=== PATIENT | female | born 1945 | race Caucasian/White ===

== ENCOUNTER 2019-05-06 15:47 | Outpatient (CLI) | payer MEDICARE, OTHER | END 2019-05-06 15:48 | disposition critical access hospital (66) | LOC: EMS 15:47 | PROVIDERS: ATTEND Surgery | DX: R42 Dizziness and giddiness (principal); R19.7 Diarrhea, unspecified | CPT/HCPCS: A0425; A0429 ==

== ENCOUNTER 2019-05-06 16:09 | Emergency (ER) | payer MEDICARE, OTHER ==
[2019-05-06] MEDS ORDERED: SODIUM CHLORIDE 0.9% 1,000 ML IV ONE (16:42)
--- NOTE | 2019-05-06 16:44 | ED Physician Documentation ---
History of Present Illness - Stated complaint Stated Complaint: DIZZY - Chief complaint Chief Complaint: Abd Pain - History obtained from History obtained from: Patient, Family, EMS - History of Present Illness Timing: Today Pain level max: 0 Pain level now: 0 - Additonal information Additional information: 73-year-old female presents to the emergency department after having diarrhea x2 this morning. After these episodes, she was up and walking when she felt lightheaded and dizzy. This resolved with sitting down. Worse with movement and better with rest. She states she currently feels better after receiving IV fluids with EMS. No fevers. No recent travel. No recent antibiotics. No recent surgery. Review of Systems Ten Systems: 10 systems reviewed and negative Constitutional: denies: Fever, Chills Ears: denies: Ear pain Nose: denies: Rhinorrhea / runny nose, Congestion Cardiac: denies: Chest pain / pressure Respiratory: denies: Dyspnea, Cough GI: reports: Diarrhea. denies: Abdominal Pain, Hematemesis, Bloody / black stool : denies: Dysuria Skin: denies: Rash Musculoskeletal: denies: Neck pain, Back pain Neurologic: denies: Headache PD PAST MEDICAL HISTORY - Past Medical History Cardiovascular: Hypertension Musculoskeletal: Other - Past Surgical History Past Surgical History: Yes - Present Medications Home Medications: Ambulatory Orders Medication Instructions Recorded Confirmed Gabapentin 300 mg PO TID #30 capsule 06/05/16 Indomethacin [Indocin] 25 mg PO BIDWM #10 capsule 06/05/16 amLODIPine [Norvasc] 5 mg PO DAILY 06/05/16 06/05/16 Cephalexin [Keflex] 500 mg PO Q6H #20 capsule 05/06/19 - Allergies Allergies/Adverse Reactions: Allergies Allergy/AdvReac Type Severity Reaction Status Date / Time cyclobenzaprine HCl * Allergy Intermediate Unknown Verified 05/06/19 16:21 [From Flexeril] - Social History Does the pt smoke?: No Smoking Status: Never smoker Does the pt drink ETOH?: No Does the pt have substance abuse?: No - Immunizations Immunizations are current?: Yes PD ED PE NORMAL - Vitals Vital signs reviewed: Yes - General General: Alert and oriented X 3, No acute distress, Well developed/nourished - HEENT HEENT: PERRL, Moist mucous membranes - Neck Neck: Supple, no meningeal sign - Cardiac Cardiac: RRR, Strong equal pulses - Respiratory Respiratory: No respiratory distress, Clear bilaterally - Abdomen Abdomen: Soft, Non tender, Non distended - Derm Derm: Warm and dry - Extremities Extremities: No edema, No calf tenderness / cord - Neuro Neuro: Alert and oriented X 3 - Psych Psych: Normal mood, Normal affect Results - Vitals Vitals: Vital Signs - 24 hr 05/06/19 05/06/19 05/06/19 16:16 18:10 18:58 Temperature 98.4 C H 36.6 C Heart Rate 88 67 84 Respiratory 14 16 18 Rate Blood Pressure 125/69 128/71 129/66 O2 Saturation 95 97 98 Oxygen O2 Source Room air - Labs Labs: Laboratory Tests 05/06/19 05/06/19 05/06/19 16:48 16:48 17:00 WBC 11.5 H RBC 4.06 L Hgb 12.5 Hct 37.7 MCV 92.9 MCH 30.8 MCHC 33.2 RDW 12.7 Plt Count 217 MPV 9.6 Neut # (Auto) 9.4 H Lymph # (Auto) 1.0 L [place] # (Auto) 0.9 Eos # (Auto) 0.0 Baso # (Auto) 0.0 Absolute Nucleated RBC 0.00 Nucleated RBC % 0.0 Sodium 137 Potassium 3.8 Chloride 101 Carbon Dioxide 24 Anion Gap 12.0 BUN 22 H Creatinine 0.8 Estimated GFR (MDRD) 70 L Glucose 148 H Calcium 8.5 Total Bilirubin 0.6 AST 17 ALT 16 Alkaline Phosphatase 40 L Total Protein 6.7 Albumin 3.9 Globulin 2.8 Albumin/Globulin Ratio 1.4 Lipase 26 Urine Color YELLOW Urine Clarity CLOUDY Urine pH 6.0 Ur Specific [place] 1.025 Urine Protein 100 H Urine Glucose (UA) NEGATIVE Urine Ketones NEGATIVE Urine Occult Blood MODERATE H Urine Nitrite NEGATIVE Urine Bilirubin NEGATIVE Urine Urobilinogen 1 (NORMAL) Ur Leukocyte Esterase MODERATE H Urine RBC TNTC H Urine WBC >25 H Ur Squamous Epith Cells RARE Squamous Urine Bacteria Many H Ur Microscopic Review INDICATED Urine Culture Comments INDICATED PD MEDICAL DECISION MAKING - ED course Complexity details: reviewed results, re-evaluated patient, considered differential, d/w patient, d/w family ED course: Patient feels better after IV fluids. Found to have UTI and given Rocephin. Will place on oral antibiotics as well. She is well-appearing, nontoxic. Afebrile. Abdomen is soft, nontender nondistended on serial exam. No evidence of C. difficile colitis or diverticulitis. Patient counseled regarding signs and symptoms for which I believe and urgent re-evaluation would be necessary. Patient with good understanding of and agreement to plan and is comfortable going home at this time This document was made in part using voice recognition software. While efforts are made to proofread this document, sound alike and grammatical errors may occur. Patient is not septic Ambulating with a steady gait and without any dizziness in the emergency department Departure - Departure Disposition: 01 Home, Self Care Clinical Impression: Dehydration Diarrhea Qualifiers: Diarrhea type: unspecified type Qualified Code(s): R19.7 - Diarrhea, unspecified UTI (urinary tract infection) Qualifiers: Urinary tract infection type: acute cystitis Hematuria presence: without hematuria Qualified Code(s): N30.00 - Acute cystitis without hematuria Condition: Good Instructions: ED Diarrhea Viral, ED UTI Cystitis Female Follow-Up: Karma Howe DO [Primary Care Provider] - Within 1 week Prescriptions: Cephalexin [Keflex] 500 mg PO Q6H #20 capsule Comments: Take all antibiotics until gone. Return if you worsen. Follow-up with your doctor for further care. Drink plenty of water. Discharge Date/Time: 05/06/19 19:16
[2019-05-06 17:01] LABS: BASOPHILS % (AUTO) 0.2 %; EOSINOPHILS % (AUTO) 0.3 %; HGB - HEMOGLOBIN 12.5 g/dL (12.0-16.0); LYMPHOCYTES % (AUTO) 8.7 %; MEAN CORPUSCULAR HEMOGLOBIN 30.8 pg (27.0-31.0); MEAN CORPUSCULAR HGB CONC 33.2 g/dL (32.0-36.0); MEAN CORPUSCULAR VOLUME 92.9 fL (81.0-99.0); MEAN PLATELET VOLUME 9.6 fL (7.9-10.8); MONOCYTES # (AUTO) 0.9 10^3/uL (0.0-1.0); NEUTROPHILS # (AUTO) 9.4 10^3/uL (1.5-6.6); NEUTROPHILS % (AUTO) 82.4 %; PLT - PLATELET COUNT 217 10^3/uL (130-450); RED BLOOD COUNT 4.06 10^6/uL (4.20-5.40); RED CELL DISTRIBUTION WIDTH 12.7 % (12.0-15.0); WHITE BLOOD COUNT 11.5 x10^3/uL (4.8-10.8)
[2019-05-06 17:11] LABS: ALBUMIN 3.9 g/dL (3.2-5.5); ALBUMIN/GLOBULIN RATIO 1.4 (1.0-2.2); BILIRUBIN,TOTAL 0.6 mg/dL (0.2-1.0); CALCIUM 8.5 mg/dL (8.5-10.3); CREATININE 0.8 mg/dL (0.4-1.0); TOTAL PROTEIN 6.7 g/dL (6.7-8.2)
[2019-05-06 18:26] LABS: GLUCOSE, URINE (UA) NEGATIVE (NEGATIVE); KETONES,URINE (UA) NEGATIVE (NEGATIVE); LEUKOCYTE ESTERASE, URINE MODERATE (NEGATIVE); NITRITE,URINE NEGATIVE (NEGATIVE); OCCULT BLOOD,URINE MODERATE (NEGATIVE); PROTEIN,URINE 100 mg/dL (NEGATIVE); UROBILINOGEN,URINE 1 (NORMAL) E.U./dL (NORMAL)
[2019-05-06 18:42] LABS: BILIRUBIN,URINE NEGATIVE (NEGATIVE); CLARITY,URINE CLOUDY (CLEAR); ICTOTEST,URINE NEGATIVE
[2019-05-06 18:43] LABS: BACTERIA,URINE Many /HPF (None Seen); RBC,URINE TNTC /HPF (0-5); SQUAMOUS EPITHELIAL CELL,UR RARE Squamous (<= Few)
[2019-05-06] MEDS ORDERED: cefTRIAXone 1 GM VIAL IVP STA (18:44)
[2019-05-06 18:59] VITALS: BP 129/66
== END 2019-05-06 19:16 | disposition home or self-care (01) ==
LOC: EDUNIT# → ED 16:09
DX: E86.0 Dehydration (principal); R19.7 Diarrhea, unspecified; N30.00 Acute cystitis without hematuria; I10 Essential (primary) hypertension
CPT/HCPCS: 36415; 80053; 81001; 81003; 83690; 85025; 87086; 93005; 96361; 96374; 99284

== ENCOUNTER 2020-04-05 08:00 | Outpatient (CLI) | payer MEDICARE, OTHER ==
[2020-04-05 18:00] LABS: BASOPHILS % (AUTO) 0.3 %; EOSINOPHILS # (AUTO) 0.1 10^3/uL (0.0-0.7); EOSINOPHILS % (AUTO) 1.4 %; HGB - HEMOGLOBIN 12.4 g/dL (12.0-16.0); LYMPHOCYTES % (AUTO) 42.5 %; MEAN CORPUSCULAR HEMOGLOBIN 29.5 pg (27.0-31.0); MEAN CORPUSCULAR HGB CONC 32.3 g/dL (32.0-36.0); MEAN CORPUSCULAR VOLUME 91.2 fL (81.0-99.0); MEAN PLATELET VOLUME 10.5 fL (7.9-10.8); MONOCYTES # (AUTO) 0.8 10^3/uL (0.0-1.0); MONOCYTES % (AUTO) 10.7 %; NEUTROPHILS # (AUTO) 3.1 10^3/uL (1.5-6.6); NEUTROPHILS % (AUTO) 44.4 %; PLT - PLATELET COUNT 275 10^3/uL (130-450); RED BLOOD COUNT 4.21 10^6/uL (4.20-5.40); RED CELL DISTRIBUTION WIDTH 12.5 % (12.0-15.0)
[2020-04-05 18:21] LABS: ALBUMIN 4.1 g/dL (3.2-5.5); ALBUMIN/GLOBULIN RATIO 1.4 (1.0-2.2); BILIRUBIN,TOTAL 0.6 mg/dL (0.2-1.0); CALCIUM 9.2 mg/dL (8.5-10.3); CREATININE 0.7 mg/dL (0.4-1.0); TOTAL PROTEIN 7.1 g/dL (6.7-8.2)
== END 2020-04-05 23:59 | disposition home or self-care (01) ==
LOC: LAB.WCP 08:00
PROVIDERS: ATTEND Nurse Practitioner Family
DX: I10 Essential (primary) hypertension (principal)
CPT/HCPCS: 36415; 80053; 85025

== ENCOUNTER 2020-12-21 10:55 | Outpatient (CLI) | payer MEDICARE, OTHER ==
[2020-12-21 11:10] LABS: ALBUMIN 4.6 g/dL (3.2-5.5); ALBUMIN/GLOBULIN RATIO 1.6 (1.0-2.2); BILIRUBIN,TOTAL 0.7 mg/dL (0.2-1.0); CALCIUM 9.1 mg/dL (8.5-10.3); CREATININE 0.6 mg/dL (0.4-1.0); POTASSIUM 3.7 mmol/L (3.5-5.0); TOTAL PROTEIN 7.4 g/dL (6.7-8.2)
[2020-12-21] MEDS ORDERED: IOVERSOL 320 100 ML VIAL IVP ONE ×2 (12:08→14:54)
--- NOTE | 2020-12-21 14:34 | CT Report ---
PROCEDURE: CHEST W INDICATIONS: EPIGASTRIC MASS CONTRAST: IV CONTRAST: Optiray 320 ml: 100 PO CONTRAST: *NO PO CONTRAST TECHNIQUE: After the administration of intravenous contrast, 5 mm thick sections acquired from the pulmonary api mikie to the posterior costophrenic angles. 7 mm thick coronal MIP reformats were acquired. For radia tion dose reduction, the following was used: automated exposure control, adjustment of mA and/or kV according to patient size. COMPARISON: None. FINDINGS: Image quality: Excellent. Lungs and pleura: No acute air space opacities. No pleural effusions or pneumothorax. Central and peripheral airways are patent and normal in caliber. Mediastinum: Heart size is normal. There is moderate atherosclerotic calcification of the coronary v asculature. No pericardial effusion. No mediastinal or hilar adenopathy by size criteria. Thoracic aorta and central pulmonary arteries are normal in size. Esophagus is normal in caliber. No hiatal hernia. Bones and chest wall: No suspicious bony lesions. No vertebral body compression fractures. No axil billy or supraclavicular adenopathy by size criteria. Thyroid gland is within normal limits. A fiduc ial marker overlies the inferior aspect of the xiphoid process, to demarcate the area of clinical int erest. There is no evidence of underlying soft tissue nor osseous mass in this location. Abdomen: Visualized portions of the upper abdomen demonstrate multiple rounded calcifications of the splenic hilum, largest of which measures roughly 10 mm diameter. IMPRESSION: 1. The epigastric mass as denoted by the fiducial marker overlies the inferior tip of the xiphoid pro cess. There is no evidence of underlying ossific nor soft tissue mass. 2. Multiple rounded calcifications within the splenic hilum, suggestive of splenic artery aneurysms. Initial further assessment with CT angiography of the abdomen is recommended. 3. Coronary artery disease. Reviewed by: Khalida Holder MD on 12/21/2020 2:32 PM PST Approved by: Khalida Holder MD on 12/21/2020 2:32 PM PST Station ID: [id number]
== END 2020-12-21 10:56 | disposition home or self-care (01) ==
LOC: LAB 10:55
PROVIDERS: ATTEND Nurse Practitioner Family
DX: D73.89 Other diseases of spleen (principal); I25.10 Atherosclerotic heart disease of native coronary artery without angina pectoris; R19.06 Epigastric swelling, mass or lump
CPT/HCPCS: 36415; 71260; 80053; Q9967

== ENCOUNTER 2021-01-05 09:52 | Outpatient (CLI) | payer MEDICARE, OTHER ==
[2021-01-05] MEDS ORDERED: IOVERSOL 320 100 ML VIAL IVP ONE ×2 (10:54)
--- NOTE | 2021-01-05 11:42 | CT Report ---
PROCEDURE: ANGIO ABDOMEN W/WO INDICATIONS: SPLENIC CALCIFICATION CONTRAST: IV CONTRAST: Optiray 320 ml: 100 PO CONTRAST: *NO PO CONTRAST TECHNIQUE: After the administration of intravenous contrast, 2 and 5 mm sections acquired from the diaphragm to the iliac crests. 3-dimensional maximum intensity projection (MIP) coronal and sagittal reformats, a nd/or 3-dimensional volume rendering reformatting was then performed. For radiation dose reduction, the following was used: automated exposure control, adjustment of mA and/or kV according to patient size. COMPARISON: Chest CT dated 12/21/2020 FINDINGS: Image quality: Excellent. Extravascular tissues: Lung bases are clear. Heart size is normal. Liver and spleen are normal in size and enhancement. Gallbladder is surgically absent Biliary system is non dilated. Pancreas enh ances normally. No adrenal nodules. Kidneys are normal in size and enhancement, without hydronephro sis. Non-opacified bowel loops demonstrate normal wall thickness and caliber. No free fluid or air. No retroperitoneal or mesenteric adenopathy. No ventral hernias. No suspicious bony abnormalities . No vertebral body compression fractures. Abdominal aorta: There is moderate diffuse plaque causing mild diffuse stenosis. No aneurysm nor dis section. Mesenteric arteries: Mild calcific origin stenoses of the celiac and superior mesenteric arteries ar e present. Inferior mesenteric artery is patent. Multiple foci of calcification within the splenic ar olivia are present, as before. There is a peripherally calcified aneurysm at the splenic hilum measurin g roughly 8 mm (series 4 image 28). Renal arteries: Single bilateral renal arteries are present which demonstrate mild calcific origin s tenoses. IMPRESSION: 1. 8mm diameter splenic artery aneurysm. 2. Otherwise negative CT angiography of the abdomen. Reviewed by: Khalida Holder MD on 01/05/2021 11:41 AM PST Approved by: Khalida Holder MD on 01/05/2021 11:41 AM PST Station ID: [id number]
== END 2021-01-05 09:53 | disposition home or self-care (01) ==
LOC: DI 09:52
PROVIDERS: ATTEND Nurse Practitioner Family
DX: D73.89 Other diseases of spleen (principal); I72.8 Aneurysm of other specified arteries
CPT/HCPCS: 74175; Q9967

== ENCOUNTER 2021-04-04 08:45 | Outpatient (CLI) | payer MEDICARE, OTHER ==
[2021-04-04 12:26] LABS: BASOPHILS % (AUTO) 0.1 %; EOSINOPHILS # (AUTO) 0.1 10^3/uL (0.0-0.7); HCT - HEMATOCRIT 39.4 % (37.0-47.0); LYMPHOCYTES # (AUTO) 2.6 10^3/uL (1.5-3.5); LYMPHOCYTES % (AUTO) 38.5 %; MEAN CORPUSCULAR VOLUME 93.8 fL (81.0-99.0); MEAN PLATELET VOLUME 10.2 fL (7.9-10.8); MONOCYTES # (AUTO) 0.9 10^3/uL (0.0-1.0); MONOCYTES % (AUTO) 12.8 %; NEUTROPHILS # (AUTO) 3.2 10^3/uL (1.5-6.6); NEUTROPHILS % (AUTO) 47.3 %; PLT - PLATELET COUNT 262 10^3/uL (130-450); RED CELL DISTRIBUTION WIDTH 12.2 % (12.0-15.0); WHITE BLOOD COUNT 6.8 x10^3/uL (4.8-10.8)
[2021-04-04 13:07] LABS: ALBUMIN 4.4 g/dL (3.2-5.5); ALBUMIN/GLOBULIN RATIO 1.5 (1.0-2.2); ALKALINE PHOSPHATASE 37 IU/L (42-121); ALT ALANINE AMINOTRANSFERASE 14 IU/L (10-60); AST ASPARTATE AMINOTRANSFERASE 15 IU/L (10-42); BILIRUBIN,TOTAL 0.7 mg/dL (0.2-1.0); BUN - BLOOD UREA NITROGEN 18 mg/dL (6-20); CALCIUM 9.2 mg/dL (8.5-10.3); CARBON DIOXIDE - CO2 28 mmol/L (21-32); CHLORIDE 100 mmol/L (101-111); CHOLESTEROL 227 mg/dL; CREATININE 0.6 mg/dL (0.4-1.0); GFR - MDRD 97 (>89); GLUCOSE 112 mg/dL (70-100); HDL CHOLESTEROL 57 mg/dL; LDL CHOLESTEROL,CALCULATED 131 mg/dL; LDL/HDL RATIO 2.3 (<4.4); SODIUM 138 mmol/L (135-145); TOTAL PROTEIN 7.4 g/dL (6.7-8.2); TRIGLYCERIDES 195 mg/dL; VLDL CHOLESTEROL 39 mg/dL
[2021-04-04 13:31] LABS: THYROID STIMULATING HORMONE 1.66 uIU/mL (0.34-5.60)
== END 2021-04-04 23:59 | disposition home or self-care (01) ==
LOC: LAB.WCP 08:45
PROVIDERS: ATTEND Nurse Practitioner Family
DX: R73.9 Hyperglycemia, unspecified (principal); I10 Essential (primary) hypertension
CPT/HCPCS: 36415; 80053; 80061; 83721; 84443; 85025

== ENCOUNTER 2021-09-13 17:15 | Emergency (ER) | payer MEDICARE, OTHER ==
--- NOTE | 2021-09-13 17:52 | ED Physician Documentation ---
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 Otherwise her only complaints medically chronically moons carpal tunnel syndrome. Yesterday she was stuck in her car for about 5 hours when [place]. This was very anxiety provoking and subsequent to that her chronic tremor which usually just involves the head now involves the hands bilaterally and she is mildly confused. She denies headache, chest pain, trouble breathing. No head injury. Her daughter is at the bedside. They live on the same property but not in the same building. Review of Systems Ten Systems: 10 systems reviewed and negative Constitutional: reports: Reviewed and negative Eyes: reports: Reviewed and negative Ears: reports: Reviewed and negative Nose: reports: Reviewed and negative Throat: reports: Reviewed and negative PD PAST MEDICAL HISTORY - Past Medical History Cardiovascular: Hypertension Musculoskeletal: Other - Past Surgical History Past Surgical History: Yes - Present Medications Home Medications: Ambulatory Orders Medication Instructions Recorded Confirmed Gabapentin 300 mg PO TID #30 capsule 06/05/16 Indomethacin [Indocin] 25 mg PO BIDWM #10 capsule 06/05/16 amLODIPine [Norvasc] 5 mg PO DAILY 06/05/16 06/05/16 cephALEXin [Keflex] 500 mg PO Q6H #20 capsule 05/06/19 - Allergies Allergies/Adverse Reactions: Allergies Allergy/AdvReac Type Severity Reaction Status Date / Time cyclobenzaprine HCl * Allergy Intermediate Unknown Verified 09/13/21 17:21 [From [facility]] - Social History Does the pt smoke?: No Smoking Status: Never smoker Does the pt drink ETOH?: No Does the pt have substance abuse?: No - Immunizations Immunizations are current?: Yes PD ED PE NORMAL - Vitals Vital signs reviewed: Yes - General General: Alert and oriented X 3, Other (Slightly slow to answer questions but she is alert and oriented x3. She has a fine tremor most consistent with an essential tremor of the head and hands.) - HEENT HEENT: PERRL, EOMI - Neck Neck: Supple, no meningeal sign, No bony TTP - Cardiac Cardiac: RRR, No murmur - Respiratory Respiratory: No respiratory distress, Clear bilaterally - Abdomen Abdomen: Normal bowel sounds, Soft, Non tender - Back Back: No CVA TTP, No spinal TTP - Derm Derm: Normal color, Warm and dry - Extremities Extremities: No edema, No calf tenderness / cord - Neuro Neuro: Alert and oriented X 3, No motor deficit, No sensory deficit, Normal speech Eye Opening: Spontaneous Motor: Obeys Commands Verbal: Oriented GCS Score: 15 NIHSS - Time Time: 17:45 - Level of Consciousness Level of consciousness: (0) Alert, Keenly responsive LOC Questions: (0) Answers both Q's correct LOC Commands: (0) Performs both correctly - Gaze Best Gaze: (0) Normal - Visual Visual: (0) No loss - Facial Palsy Facial Palsy: (0) Normal, symmetrical movement - Motor Arms (both separate) Motor Arm (right): (0) No drift Motor Arm (left): (0) No drift - Motor Legs (both separate) Motor Leg (right): (0) No drift Motor Leg (left): (0) No drift - Limb Ataxia Limb Ataxia: (0) Absent - Sensory Sensory: (0) Normal - Best Language Best Language: (0) No aphasia - Dysarthria Dysarthria: (0) Normal - Extinction and Inattention (formally neg Extinction and inattention: (0) No abnormality - Total Score/Results Total Score/Result: 0 Results - Vitals Vitals: Vital Signs - 24 hr 09/13/21 09/13/21 09/13/21 17:22 17:40 19:30 Temperature 36.4 C L 36.5 C Heart Rate 105 H 105 H 90 Respiratory 20 20 16 Rate Blood Pressure 165/68 H 165/68 H 132/65 H O2 Saturation 99 99 96 Oxygen O2 Source Room air - EKG (time done) 1815 Rate: Rate (enter#) (97) Rhythm: NSR (w pacs and pvcs) [place]: Normal Intervals: Normal [place] QRS: Normal Ischemia: Non specific changes Computer interpretation: Disagree with computer - Labs Labs: Laboratory Tests 09/13/21 09/13/21 09/13/21 18:00 18:00 18:00 WBC 6.1 RBC 4.24 Hgb 13.0 Hct 39.1 MCV 92.2 MCH 30.7 MCHC 33.2 RDW 12.2 Plt Count 241 MPV 9.6 Neut # (Auto) 2.7 Lymph # (Auto) 2.5 [place] # (Auto) 0.8 Eos # (Auto) 0.1 Baso # (Auto) 0.0 Absolute Nucleated RBC 0.00 Nucleated RBC % 0.0 Sodium 135 Potassium 4.0 Chloride 99 L Carbon Dioxide 25 Anion Gap 11.0 BUN 17 Creatinine 0.7 Estimated GFR (MDRD) 81 L Glucose 152 H Calcium 9.1 Total Bilirubin 0.5 AST 14 ALT 13 Alkaline Phosphatase 40 L Total Protein 7.5 Albumin 4.5 Globulin 3.0 Albumin/Globulin Ratio 1.5 TSH 2.10 Urine Opiates Screen Ur Oxycodone Screen Urine Methadone Screen Ur Propoxyphene Screen Ur Barbiturates Screen Ur Tricyclics Screen Ur Phencyclidine Scrn Ur Amphetamine Screen U Methamphetamines Scrn U Benzodiazepines Scrn Urine Cocaine Screen U Cannabinoids Screen Ethyl Alcohol < 5.0 09/13/21 19:40 WBC RBC Hgb Hct MCV MCH MCHC RDW Plt Count MPV Neut # (Auto) Lymph # (Auto) [place] # (Auto) Eos # (Auto) Baso # (Auto) Absolute Nucleated RBC Nucleated RBC % Sodium Potassium Chloride Carbon Dioxide Anion Gap BUN Creatinine Estimated GFR (MDRD) Glucose Calcium Total Bilirubin AST ALT Alkaline Phosphatase Total Protein Albumin Globulin Albumin/Globulin Ratio TSH Urine Opiates Screen NEGATIVE Ur Oxycodone Screen NEGATIVE Urine Methadone Screen NEGATIVE Ur Propoxyphene Screen NEGATIVE Ur Barbiturates Screen NEGATIVE Ur Tricyclics Screen NEGATIVE Ur Phencyclidine Scrn NEGATIVE Ur Amphetamine Screen NEGATIVE U Methamphetamines Scrn NEGATIVE U Benzodiazepines Scrn NEGATIVE Urine Cocaine Screen NEGATIVE U Cannabinoids Screen NEGATIVE Ethyl Alcohol - Rads (name of study) CT Head Radiology: EMP read contemporaneously (atrophy, NAD) PD MEDICAL DECISION MAKING - ED course ED course: 76-year-old woman presents with confusion and increased shakiness. It started during a stressful episode yesterday and seemed to resolve while she was in the department. No pertinent positive findings on work-up here. She was feeling much better without specific intervention during her ED stay. She was offered to stay in observation which she declined. Departure - Departure Disposition: 01 Home, Self Care Clinical Impression: Confusion, Essential tremor Condition: Good Comments: If you worsen or if other new symptoms develop. As discussed, there are special ists in essential tremor and you can follow-up with them if you like, [facility] specializes in this, you can call their neuroscience [place] for an appointment, .
[2021-09-13 18:09] LABS: BASOPHILS % (AUTO) 0.2 %; EOSINOPHILS # (AUTO) 0.1 10^3/uL (0.0-0.7); EOSINOPHILS % (AUTO) 1.1 %; HCT - HEMATOCRIT 39.1 % (37.0-47.0); LYMPHOCYTES # (AUTO) 2.5 10^3/uL (1.5-3.5); LYMPHOCYTES % (AUTO) 41.4 %; MEAN CORPUSCULAR HEMOGLOBIN 30.7 pg (27.0-31.0); MEAN CORPUSCULAR HGB CONC 33.2 g/dL (32.0-36.0); MEAN CORPUSCULAR VOLUME 92.2 fL (81.0-99.0); MEAN PLATELET VOLUME 9.6 fL (7.9-10.8); MONOCYTES # (AUTO) 0.8 10^3/uL (0.0-1.0); MONOCYTES % (AUTO) 12.8 %; NEUTROPHILS # (AUTO) 2.7 10^3/uL (1.5-6.6); NEUTROPHILS % (AUTO) 43.7 %; PLT - PLATELET COUNT 241 10^3/uL (130-450); RED BLOOD COUNT 4.24 10^6/uL (4.20-5.40); RED CELL DISTRIBUTION WIDTH 12.2 % (12.0-15.0); WHITE BLOOD COUNT 6.1 x10^3/uL (4.8-10.8)
[2021-09-13 18:22] LABS: ALBUMIN 4.5 g/dL (3.2-5.5); ALBUMIN/GLOBULIN RATIO 1.5 (1.0-2.2); ALKALINE PHOSPHATASE 40 IU/L (42-121); ALT ALANINE AMINOTRANSFERASE 13 IU/L (10-60); AST ASPARTATE AMINOTRANSFERASE 14 IU/L (10-42); BILIRUBIN,TOTAL 0.5 mg/dL (0.2-1.0); BUN - BLOOD UREA NITROGEN 17 mg/dL (6-20); CALCIUM 9.1 mg/dL (8.5-10.3); CARBON DIOXIDE - CO2 25 mmol/L (21-32); CHLORIDE 99 mmol/L (101-111); CREATININE 0.7 mg/dL (0.4-1.0); ETOH - ETHANOL < 5.0 mg/dL; GFR - MDRD 81 (>89); GLUCOSE 152 mg/dL (70-100); SODIUM 135 mmol/L (135-145); TOTAL PROTEIN 7.5 g/dL (6.7-8.2)
--- NOTE | 2021-09-13 19:29 | CT Report ---
PROCEDURE: CT brain without contrast INDICATIONS: Altered mental status TECHNIQUE: Noncontrast 4.5 mm thick angled axial sections acquired from the foramen magnum to the ve rtex. For radiation dose reduction, the following was used: automated exposure control, adjustment of mA and/or kV according to patient size. COMPARISON: None. FINDINGS: Image quality: Excellent. CSF spaces: Basal cisterns are patent. No extra-axial fluid collections. Ventricles are normal in size and shape. Brain: No midline shift. No intracranial masses or hemorrhage. Glover-white matter interface is norm al. Moderate atrophy and multifocal white matter chronic ischemic change noted. Atherosclerotic vasc ular calcification noted in the cavernous segments of both internal carotid arteries as well as the i ntradural vertebral arteries. Skull and face: Calvarium and visualized facial bones are intact, without suspicious lesions. Sinuses: Visualized sinuses and mastoids are clear. IMPRESSION: Moderate atrophy and chronic ischemic change without intracranial hemorrhage or mass effect. Reviewed by: Yehuda Chowdhury MD on 09/13/2021 6:27 PM AKST Approved by: Yehuda Chowdhury MD on 09/13/2021 6:27 PM AKST Station ID: [id number]
[2021-09-13 19:31] VITALS: BP 132/65
[2021-09-13 19:54] LABS: MUDS CUTOFF CONCENTRATIONS CUTOFF CONC BELOW:
[2021-09-13 20:12] LABS: AMPHETAMINE SCREEN,URINE NEGATIVE (NEGATIVE); BARBITURATE SCREEN,UR NEGATIVE (NEGATIVE); BENZODIAZEPINES SCREEN, URINE NEGATIVE (NEGATIVE); COCAINE SCREEN URINE NEGATIVE (NEGATIVE); METHADONE SCREEN, URINE NEGATIVE (NEGATIVE); METHAMPHETAMINES SCREEN, URINE NEGATIVE (NEGATIVE); OPIATE SCREEN, URINE NEGATIVE (NEGATIVE); OXYCODONE SCREEN, URINE NEGATIVE (NEGATIVE); PROPOXYPHENE SCREEN, URINE NEGATIVE (NEGATIVE); THC CANNABINOID SCREEN, URINE NEGATIVE (NEGATIVE); TRICYCLIC ANTIDEPRESSANT,URINE NEGATIVE (NEGATIVE)
== END 2021-09-13 20:33 | disposition home or self-care (01) ==
LOC: ED 17:15
DX: R41.0 Disorientation, unspecified (principal); G25.0 Essential tremor
CPT/HCPCS: 36415; 70450; 80053; 80306; 84443; 85025; 93005; 99283; 99284; G0480; 80320

== ENCOUNTER 2021-09-15 09:55 | Emergency (ER) | payer MEDICARE, OTHER ==
--- NOTE | 2021-09-15 10:58 | ED Physician Documentation ---
PD HPI LOWER EXT INJURY - Stated complaint Stated Complaint: KNEE PX, DIFF WALKING - Chief complaint Chief Complaint: Ext Problem - History obtained from History obtained from: Patient - History of Present Illness Type of injury: Fall (hashad general weakness for 2 days and twisted/fall yesterday with pain in right knee and low back. Did not hit head. Daughter also notes progressive right facial droop the past 2 days. Patient with some slow thought processing but still coherent.) Where injury occurred: Home Timing - onset: Yesterday Timing - details: Abrupt onset, Still present Worsened by: Moving, Other (walking hurts her knee) Associated symptoms: No: Weakness, Numbness, Swelling Contributing factors: No: Anticoagulated, Prosthetic joint Similar symptoms before: Has not had sx before (no regular problems with knee n or back.) Recently seen: Emergency Dept (2 days ago with some confusion and general weakness after sitting in car for few hours due to bridge being closed. Had labs, Utox, CT head without acute findings. Patient reportedly improved after rest in ER.) Review of Systems Constitutional: denies: Fever, Chills Nose: denies: Rhinorrhea / runny nose, Congestion Throat: denies: Sore throat Respiratory: denies: Cough GI: denies: Abdominal Pain, Nausea, Vomiting, Diarrhea : reports: Frequency. denies: Dysuria Skin: denies: Rash Neurologic: reports: Focal weakness (slowly progressing right facial droop.). denies: Numbness, Headache, Head injury, LOC PD PAST MEDICAL HISTORY - Past Medical History Cardiovascular: Hypertension Musculoskeletal: Other - Past Surgical History Past Surgical History: Yes - Present Medications Home Medications: Ambulatory Orders Medication Instructions Recorded Confirmed Gabapentin 300 mg PO TID #30 capsule 06/05/16 Indomethacin [Indocin] 25 mg PO BIDWM #10 capsule 06/05/16 amLODIPine [Norvasc] 5 mg PO DAILY 06/05/16 06/05/16 cephALEXin [Keflex] 500 mg PO Q6H #20 capsule 05/06/19 cephALEXin [Keflex] 500 mg PO TID 5 Days #15 cap 09/15/21 dexAMETHasone [Decadron] 4 mg PO DAILY #5 tablet 09/15/21 - Allergies Allergies/Adverse Reactions: Allergies Allergy/AdvReac Type Severity Reaction Status Date / Time cyclobenzaprine HCl * Allergy Intermediate Unknown Verified 09/15/21 10:16 [From Flexeril] - Social History Does the pt smoke?: No Smoking Status: Never smoker Does the pt drink ETOH?: No Does the pt have substance abuse?: No - Immunizations Immunizations are current?: Yes PD ED PE NORMAL - Vitals Vital signs reviewed: Yes - General General: Alert and oriented X 3 (a little slow to answer questions but still coherent and oriented. ), No acute distress, Well developed/nourished - HEENT HEENT: Atraumatic, Ears normal, Pharynx benign. No: Moist mucous membranes - Neck Neck: Supple, no meningeal sign, No adenopathy - Cardiac Cardiac: RRR, No murmur - Respiratory Respiratory: Clear bilaterally - Abdomen Abdomen: Soft, Non tender - Back Back: No spinal TTP (but has some tenderness right SI and right paralumbar lower. No rash nor sores. Not tender to light touch. ) - Derm Derm: Normal color, Warm and dry - Extremities Extremities: No edema, No calf tenderness / cord, Other (right knee with tenderness laterally. No noted pain/laxity with valgus nor cruciate testing. Some pain with impaction (Apley type) so consider meniscal/arthritis. Hip with good ROM and no pain rotation/impaction. ) - Neuro Neuro: Alert and oriented X 3, No motor deficit, No sensory deficit, Normal speech. 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 Able to purse lips and puff cheeks still. mild weakness with eye closing and eyebrow lifting on right as well. ) Eye Opening: Spontaneous Motor: Obeys Commands Verbal: Oriented (just some sluggish answering at times) GCS Score: 15 Results - Vitals Vitals: Vital Signs - 24 hr 09/15/21 09/15/21 09/15/21 10:10 11:41 14:23 Temperature 36.6 C Heart Rate 88 86 89 Respiratory 18 18 16 Rate Blood Pressure 147/75 H 151/80 H 146/66 H O2 Saturation 97 99 100 Oxygen O2 Source Room air - Labs Labs: Laboratory Tests 09/15/21 09/15/21 11:47 13:05 Sodium 135 Potassium 4.0 Chloride 101 Carbon Dioxide 25 Anion Gap 9.0 BUN 19 Creatinine 0.7 Estimated GFR (MDRD) 81 L Glucose 112 H Calcium 9.1 Total Bilirubin 1.3 H AST 16 ALT 15 Alkaline Phosphatase 40 L Total Protein 7.6 Albumin 4.7 Globulin 2.9 Albumin/Globulin Ratio 1.6 Lipase 29 Urine Color YELLOW Urine Clarity HAZY Urine pH 6.5 Ur Specific [place] 1.015 Urine Protein NEGATIVE Urine Glucose (UA) NEGATIVE Urine Ketones TRACE Urine Occult Blood NEGATIVE Urine Nitrite NEGATIVE Urine Bilirubin NEGATIVE Urine Urobilinogen 0.2 (NORMAL) Ur Leukocyte Esterase MODERATE H Urine RBC 0-5 Urine WBC 11-25 H Ur Squamous Epith Cells FEW Squamous Urine Bacteria Few Ur Microscopic Review INDICATED Urine Culture Comments INDICATED - Rads (name of study) right knee Radiology: Prelim report reviewed (no fracture; arthritic changes noted), See rad report lumbar spine CT Radiology: Prelim report reviewed (no fractures nor acute bony process. ), See rad report PD MEDICAL DECISION MAKING - ED course Complexity details: reviewed old records (seen couple days ago for similar and had labs, head CT, Utox. ), reviewed results, re-evaluated patient (right facial gradual weakness 2 days including forehead c/w Calderon Palsy. General weakness with fall. No focal. Pain knee and hip seem arthritic; no fractures. UA slightly positive with weakness, some mild confusion, and frequency of urination. ), considered differential (seen recently for weakness and confusion felt to be from fatigue and dehydration. Daughter says still some mild confusion. Has had increasing right facial droop. No extremity weakness. has knee and hip pain the past couple of days.), d/w patient, d/w family (daughter) Departure - Departure Disposition: 01 Home, Self Care Clinical Impression: Facial weakness, Calderon palsy UTI (urinary tract infection) Qualifiers: Urinary tract infection type: acute cystitis Hematuria presence: without hematuria Qualified Code(s): N30.00 - Acute cystitis without hematuria Condition: Stable Record reviewed to determine appropriate education?: Yes Instructions: ED [place] [facility] Follow-Up: Soledad Max DO [Primary Care Provider] - Prescriptions: dexAMETHasone [Decadron] 4 mg PO DAILY #5 tablet cephALEXin [Keflex] 500 mg PO TID 5 Days #15 cap Comments: Continue usual medications. Use Tylenol 500 mg 4 times a day for the next several days to week to help with the pain in the knee and the hip. I presume these pains are related to some arthritis flareup. No obvious fractures or acute abnormalities on your imaging. The progression of the weakness on the face looks to be a Calderon's palsy. This is an inflammation of the facial nerve and has a gradual onset usually peaks at 4 to 5 days and then takes often about a month to resolve. For that we can use Decadron steroid anti-inflammatory to help with the inflammation of the nerve. Your urine shows some signs of infection to it and given some of your general symptoms, this may connect to a possible UTI. We can go with cephalexin as directed for that. Follow-up with your primary care of the next several days or so if not improving well. Return to the ER as needed. I transmitted your prescriptions to [facility] pharmacy in [place]. Discharge Date/Time: 09/15/21 14:35
[2021-09-15] MEDS: SODIUM CHLORIDE 0.9% 1,000 ML IV STA (11:41)
--- NOTE | 2021-09-15 11:44 | XRAY Report ---
PROCEDURE: Knee 3 View RT INDICATIONS: knee pain without fall TECHNIQUE: 3 views of the right knee(s) were acquired. COMPARISON: None. FINDINGS: Bones: No fractures or dislocations. No suspicious bony lesions. Arthritic changes are present. Soft tissues: No joint effusion. No suspicious soft tissue calcifications. IMPRESSION: No visualized acute fracture or dislocation. However, occult injury cannot be excluded. Recommend short interval imaging follow-up in 7-10 days as clinically indicated for additional evalua tion. Reviewed by: Kae Cooper MD on 09/15/2021 11:43 AM [facility] Approved by: Kae Cooper MD on 09/15/2021 11:43 AM [facility] Station ID: [id number]
[2021-09-15 12:06] LABS: ALBUMIN 4.7 g/dL (3.2-5.5); ALBUMIN/GLOBULIN RATIO 1.6 (1.0-2.2); BILIRUBIN,TOTAL 1.3 mg/dL (0.2-1.0); CALCIUM 9.1 mg/dL (8.5-10.3); CREATININE 0.7 mg/dL (0.4-1.0); TOTAL PROTEIN 7.6 g/dL (6.7-8.2)
[2021-09-15 13:16] LABS: BILIRUBIN,URINE NEGATIVE (NEGATIVE); GLUCOSE, URINE (UA) NEGATIVE (NEGATIVE); KETONES,URINE (UA) TRACE mg/dL (NEGATIVE); LEUKOCYTE ESTERASE, URINE MODERATE (NEGATIVE); NITRITE,URINE NEGATIVE (NEGATIVE); OCCULT BLOOD,URINE NEGATIVE (NEGATIVE); PH,URINE 6.5 PH (5.0-7.5); PROTEIN,URINE NEGATIVE (NEGATIVE); UROBILINOGEN,URINE 0.2 (NORMAL) E.U./dL (NORMAL)
--- NOTE | 2021-09-15 13:18 | CT Report ---
PROCEDURE: LUMBAR SPINE WO INDICATIONS: low back pain 2 days TECHNIQUE: Noncontrast 3 mm thick sections acquired from the T12 level to the sacrum. Sagittal and coronal refo rmats were constructed. For radiation dose reduction, the following was used: automated exposure co ntrol, adjustment of mA and/or kV according to patient size. COMPARISON: X-ray L-spine 06/05/2016 FINDINGS: Image quality: Excellent. Bones: There is posterior fusion from L4 through S1 with prosthetic discs at L4-5 and L5-S1. The lef t pedicular screw is at the superior most margin of the superior endplate of L4. All hardware appears intact. No hardware fracture or periprosthetic lucency to suggest loosening. No osseous fracture or dislocation. No suspicious osseous lesions. Multilevel anterior osteophytes are present. Severe disc space narrowing is present at L1-L2, mild to moderate L2-3, L3-4. Spinal stenosis is present, mild L1-L2, moderate to severe L2-3, L3-4. There is moderate to severe bilateral foraminal narrowing L1-L2, moderate bilateral L2-3, mild to moderate L3 -4, mild bilateral L4-5 and L5-S1. Soft tissues: No retroperitoneal masses or hematomas. Visualized aorta is normal in caliber. IMPRESSION: Multilevel degenerative changes as above. No visualized acute fracture. Reviewed by: Kae Cooper MD on 09/15/2021 1:16 PM PST Approved by: Kae Cooper MD on 09/15/2021 1:16 PM PST Station ID: [id number]
[2021-09-15 13:20] LABS: CLARITY,URINE HAZY (CLEAR)
[2021-09-15 13:32] LABS: BACTERIA,URINE Few /HPF (None Seen); RBC,URINE 0-5 /HPF (0-5); SQUAMOUS EPITHELIAL CELL,UR FEW Squamous (<= Few)
[2021-09-15] MEDS: cephALEXin 250 MG CAPSULE PO STA (14:14)
[2021-09-15] MEDS: DEXAMETHASONE 10 MG/ML VIAL IVP STA (14:15)
[2021-09-15 14:26] VITALS: BP 146/66
== END 2021-09-15 14:35 | disposition home or self-care (01) ==
LOC: ED 09:55
DX: M54.50 Low back pain, unspecified (principal); M25.561 Pain in right knee; N30.00 Acute cystitis without hematuria; W19.XXXA Unspecified fall, initial encounter; R29.810 Facial weakness; R53.1 Weakness
CPT/HCPCS: 36415; 72131; 73562; 80053; 81001; 83690; 87086; 96374; 99284; A9270; 81003

== ENCOUNTER 2021-09-16 18:50 | Inpatient (IN) | payer MEDICARE, OTHER ==
[2021-09-16] MEDS ORDERED: SODIUM CHLORIDE 0.9% 500 ML IV STA (21:40)
--- NOTE | 2021-09-16 21:50 | ED Physician Documentation ---
History of Present Illness - Stated complaint Stated Complaint: RT SIDE WEAKNESS - Chief complaint Chief Complaint: Neuro - History obtained from History obtained from: Patient, Family (daughter) - Additonal information Additional information: 76yF, normally AOX3 and ambulatory independently, compliant with ADLs and living independently at home with , p/w multiple symptoms over the past few days with new onset RUE/RLE weakness that daughter noted today. Patient was apparently stuck in traffic for 4 hours 09/12 and was very shaken up by it, acting confused per daughters, then came to ED 09/13 due to confusion, had negative head CT, utox, and labs. patient had unwitnessed fall 09/14 sustaining injury to R leg and low back, was seen in ED 09/15 for this and noted to have R facial droop diagnosed as bells palsy, but did not have any other neuro deficits at that time, and no weakness in arms or legs. also found to have uti at that time and placed on decadron and ceflex. patient returns today due to persistent confusion, shuffling gait, R knee pain, and RUE/RLE numbness and weakness. Review of Systems Ten Systems: 10 systems reviewed and negative Neurologic: reports: Focal weakness, Numbness, Difficulty speaking, Other (facial droop) PD PAST MEDICAL HISTORY - Past Medical History Cardiovascular: Hypertension Musculoskeletal: Other - Past Surgical History Past Surgical History: Yes - Present Medications Home Medications: Ambulatory Orders Medication Instructions Recorded Confirmed Gabapentin 300 mg PO TID #30 capsule 06/05/16 Indomethacin [Indocin] 25 mg PO BIDWM #10 capsule 06/05/16 amLODIPine [Norvasc] 5 mg PO DAILY 06/05/16 06/05/16 cephALEXin [Keflex] 500 mg PO Q6H #20 capsule 05/06/19 cephALEXin [Keflex] 500 mg PO TID 5 Days #15 cap 09/15/21 dexAMETHasone [Decadron] 4 mg PO DAILY #5 tablet 09/15/21 - Allergies Allergies/Adverse Reactions: Allergies Allergy/AdvReac Type Severity Reaction Status Date / Time cyclobenzaprine HCl * Allergy Intermediate Unknown Verified 09/16/21 18:56 [From Flexeril] - Social History Does the pt smoke?: No Smoking Status: Never smoker Does the pt drink ETOH?: No Does the pt have substance abuse?: No - Immunizations Immunizations are current?: Yes PD ED PE NORMAL - Vitals Vital signs reviewed: Yes - General General: No acute distress, Well developed/nourished, Other (AOX2 (unable to state year accurately)) - HEENT HEENT: Atraumatic, PERRL, EOMI, Ears normal, Moist mucous membranes, Pharynx benign - Neck Neck: Supple, no meningeal sign - Cardiac Cardiac: RRR - Respiratory Respiratory: No respiratory distress, Clear bilaterally - Abdomen Abdomen: Non tender, Non distended - Derm Derm: Normal color, Warm and dry - Extremities Extremities: No deformity - Neuro Neuro: Other (NIHSS 6 (1 for facial palsy, 1 for RUE drift, 1 for RLE drift, 1 for limb ataxia, 1 for sensation, 1 for dysarthria)) - Psych Psych: Normal mood, Normal affect Results - Vitals Vitals: Vital Signs - 24 hr 09/16/21 09/16/21 09/16/21 18:53 19:52 23:43 Temperature 36.6 C Heart Rate 94 98 Respiratory 18 24 20 Rate Blood Pressure 150/73 H 155/70 H 154/73 H O2 Saturation 98 Oxygen O2 Source Room air - EKG (time done) 2302 Rate: Rate (enter#) (88) Rhythm: NSR Compare to prior EKG: Unchanged from prior EKG (09/13/21) - Labs Labs: Laboratory Tests 09/16/21 09/16/21 22:07 22:07 WBC 10.9 H RBC 4.19 L Hgb 13.2 Hct 38.1 MCV 90.9 MCH 31.5 H MCHC 34.6 RDW 12.3 Plt Count 264 MPV 9.7 Neut # (Auto) 8.3 H Lymph # (Auto) 1.2 L [place] # (Auto) 1.4 H Eos # (Auto) 0.0 Baso # (Auto) 0.0 Absolute Nucleated RBC 0.00 Nucleated RBC % 0.0 Sodium 132 L Potassium 3.7 Chloride 99 L Carbon Dioxide 22 Anion Gap 11.0 BUN 23 H Creatinine 0.7 Estimated GFR (MDRD) 81 L Glucose 148 H Calcium 9.0 Total Bilirubin 0.9 AST 17 ALT 18 Alkaline Phosphatase 41 L Total Protein 7.5 Albumin 4.6 Globulin 2.9 Albumin/Globulin Ratio 1.6 Lipase 22 PD MEDICAL DECISION MAKING - ED course ED course: d/w [place] neurologist Dr. Avalos who recommends admission to [facility] - recommend aspirin, 40 atorvastatin, cardiac monitoring, check lipid panel and increase dose of atorvastatin if LDLs are high, initiate physical therapy/rehab. no need for MRI. Okay to wait for echo till sunday. Outpatient f/u with neurology and possible holter monitoring. Departure - Departure Disposition: 66 [facility] DC/Xfer Clinical Impression: Acute ischemic stroke, Facial droop, Weakness Condition: Stable
[2021-09-16] MEDS ORDERED: IOVERSOL 320 100 ML VIAL IVP ONE ×2 (22:09→22:57)
[2021-09-16 22:13] LABS: BASOPHILS % (AUTO) 0.1 %; HCT - HEMATOCRIT 38.1 % (37.0-47.0); HGB - HEMOGLOBIN 13.2 g/dL (12.0-16.0); LYMPHOCYTES # (AUTO) 1.2 10^3/uL (1.5-3.5); LYMPHOCYTES % (AUTO) 10.8 %; MEAN CORPUSCULAR HEMOGLOBIN 31.5 pg (27.0-31.0); MEAN CORPUSCULAR HGB CONC 34.6 g/dL (32.0-36.0); MEAN CORPUSCULAR VOLUME 90.9 fL (81.0-99.0); MEAN PLATELET VOLUME 9.7 fL (7.9-10.8); MONOCYTES # (AUTO) 1.4 10^3/uL (0.0-1.0); MONOCYTES % (AUTO) 12.8 %; NEUTROPHILS # (AUTO) 8.3 10^3/uL (1.5-6.6); PLT - PLATELET COUNT 264 10^3/uL (130-450); RED BLOOD COUNT 4.19 10^6/uL (4.20-5.40); RED CELL DISTRIBUTION WIDTH 12.3 % (12.0-15.0); WHITE BLOOD COUNT 10.9 x10^3/uL (4.8-10.8)
[2021-09-16 22:29] LABS: ALBUMIN 4.6 g/dL (3.2-5.5); ALBUMIN/GLOBULIN RATIO 1.6 (1.0-2.2); BILIRUBIN,TOTAL 0.9 mg/dL (0.2-1.0); CREATININE 0.7 mg/dL (0.4-1.0); POTASSIUM 3.7 mmol/L (3.5-5.0); TOTAL PROTEIN 7.5 g/dL (6.7-8.2)
--- NOTE | 2021-09-16 23:05 | XRAY Report ---
PROCEDURE: Chest 1 View X-Ray INDICATIONS: Chest Pain TECHNIQUE: One view of the chest was acquired. COMPARISON: None FINDINGS: Surgical changes and devices: None. Lungs and pleura: No pleural effusions or pneumothorax. Lungs are clear. Mediastinum: Mediastinal contours appear normal. Heart size is normal. Bones and chest wall: No suspicious bony lesions. Overlying soft tissues appear unremarkable. IMPRESSION: No evidence acute pulmonary process. Reviewed by: Min Claros MD on 09/16/2021 11:04 PM [facility] Approved by: Min Claros MD on 09/16/2021 11:04 PM [facility] Station ID: [id number]
--- NOTE | 2021-09-16 23:17 | CT Report ---
PROCEDURE: ANGIO NECK W INDICATIONS: RUE/RLE weak, facial droop X 4 days CONTRAST: IV CONTRAST: Optiray 320 ml: 100 PO CONTRAST: *NO PO CONTRAST TECHNIQUE: After the administration of intravenous contrast, 1.5 mm axial sections acquired from the aortic arch to the [place] of [place]hi. Coronal 3-D maximum intensity projection (MIP) and/or volume rendering ref ormats were then performed. For radiation dose reduction, the following was used: automated exposur e control, adjustment of mA and/or kV according to patient size. COMPARISON: None. FINDINGS: Image quality: Excellent. Carotid system: The great vessels demonstrate a conventional anatomy as they arise from the aortic a rch. There is a less than 50% proximal left subclavian artery stenosis. The origins of the common car otid arteries appear patent. The common carotid arteries demonstrate normal calibers and courses. T he bifurcation regions appear normal bilaterally. There is a mild less than 50% proximal left interna l carotid artery stenosis. Posterior circulation: The origins of the vertebral arteries appear patent. The left vertebral arter y is somewhat diminutive. The distal left vertebral artery is quite diminutive. The right vertebral a rtery is dominant. There is mild proximal basilar artery stenotic disease. Soft tissues: Visualized neck soft tissues demonstrate no suspicious abnormalities. The thyroid is normal in size and there are no incidental findings. Bones: No suspicious bony lesions. Visualized cervical spine appears normally aligned. IMPRESSION: 1. Less than 50% proximal left subclavian artery stenosis. 2. Less than 50% proximal left internal carotid artery stenosis. 3. Mild proximal basilar artery stenosis. The estimate of stenosis included in the report of the imaging study was calculated using the NASCET method CLINICAL RECOMMENDATION STATEMENTS: In patients <35 years with an ITN detected on CT, MRI, or extrathyroidal ultrasound, the Committee re commends further evaluation with dedicated thyroid ultrasound if the nodule is "e1 cm and has no susp icious imaging features, and if the patient has normal life expectancy. In patients "e35 years with an ITN detected on CT, MRI, or extrathyroidal ultrasound, the Committee r ecommends further evaluation with dedicated thyroid ultrasound if the nodule is "e1.5 cm and has no s uspicious imaging features, and if the patient has normal life expectancy. (ACR, 2014) Reviewed by: Min Claros MD on 09/16/2021 11:16 PM PST Approved by: Min Claros MD on 09/16/2021 11:16 PM PST Station ID: [id number]
--- NOTE | 2021-09-16 23:17 | CT Report ---
PROCEDURE: ANGIO HEAD W/WO INDICATIONS: RUE/RLE weak, unknown onset, R facial droop X4 day CONTRAST: IV CONTRAST: Optiray 320 ml: 100 PO CONTRAST: *NO PO CONTRAST TECHNIQUE: Precontrast 4.5 mm thick angled axial sections acquired from the foramen magnum to the vertex. Afte r the administration of intravenous contrast, 1 mm thick sections acquired through the [place] of [place] is. Postcontrast 4.5 mm thick sections then re-acquired from the foramen magnum to the vertex. 3-di mensional lkczxxy-vcovtywey-xthdoswlfr (MIP) and/or volume rendering reformats were acquired of the c entral intracranial vasculature. For radiation dose reduction, the following was used: automated ex posure control, adjustment of mA and/or kV according to patient size. COMPARISON: CT head dated 09/13/2019 FINDINGS: Image quality: Diagnostic. Some of the sequences have significant patient motion artifact. Anterior circulation: Intracranial internal carotid arteries are normal in size and flow. The flow within the paired anterior cerebral arteries is normal and symmetric. The flow within the middle cer ebral arteries is normal and symmetric. The anterior communicating artery is seen. No aneurysms are seen. Posterior circulation: Distal left vertebral artery is diminutive. Distal right vertebral artery is d ominant. There is a mild focal proximal basilar artery stenosis. Flow within the posterior cerebral a rteries is normal and symmetric. No aneurysms are seen. CSF spaces: Ventricles are normal in size and shape. Basal cisterns are patent. No extra-axial flu id collections. Brain: No midline shift. No intracranial bleeds or masses. Subacute focal infarct centered in the l eft deep white matter infarcts adjacent to the body of the left caudate, extending slightly into the left basal ganglia.. This region was unremarkable on the previous study. Glover-white matter interface is otherwise appears intact. Skull and face: Calvarium and facial bones appear intact, without suspicious lesions. Sinuses: Visualized sinuses and mastoids are clear. IMPRESSION: 1. Since the study from 3 days ago, there is now evidence of a subacute focal small infarct centered in the left deep white matter. 2. Normal variant diminutive distal left vertebral artery, mild proximal basilar artery stenosis. Reviewed by: Min Claros MD on 09/16/2021 11:15 PM PST Approved by: Min Claros MD on 09/16/2021 11:15 PM PST Station ID: [id number]
[2021-09-16] MEDS ORDERED: ASPIRIN 325 MG TABLET PO STA (23:55)
[2021-09-17] MEDS ORDERED: ATORVASTATIN 40 MG TABLET PO STA (00:33)
[2021-09-17] MEDS ORDERED: ONDANSETRON 4 MG/2 ML VIAL IVP PRN (00:37)
[2021-09-17] MEDS ORDERED: SODIUM CHLORIDE FLUSH 0.9% 10 ML SYRINGE IVP PRN (00:37)
[2021-09-17 00:56] LABS: B. PARAPERTUSSIS- RESP PCR PAN NOT DETECTED; B. PERTUSSIS- RESP PCR PANEL NOT DETECTED; C. PNEUMONIAE- RESP PCR PANEL NOT DETECTED; CORONAVIRUS 229E-RESP PCR NOT DETECTED; CORONAVIRUS HKU1-RESP PCR NOT DETECTED; CORONAVIRUS NL63-RESP PCR NOT DETECTED; CORONAVIRUS OC43-RESP PCR NOT DETECTED; HUMAN METAPNEUMOVIRUS NOT DETECTED; INFLUENZA A- RESP PCR PANEL NOT DETECTED; INFLUENZA B - RESP PCR PANEL NOT DETECTED; M. PNEUMONIAE- RESP PCR PANEL NOT DETECTED; PARAINFLUENZA VIRUS 1 NOT DETECTED; PARAINFLUENZA VIRUS 2 NOT DETECTED; PARAINFLUENZA VIRUS 3 NOT DETECTED; PARAINFLUENZA VIRUS 4 NOT DETECTED; RHINOVIRUS/ENTEROVIRUS NOT DETECTED; RSV- RESP PCR PANEL NOT DETECTED; SARS-CoV-2 -RESP PCR PANEL NOT DETECTED
--- NOTE | 2021-09-17 01:03 | HISTORY & PHYSICAL EXAMINATION ---
Chief Complaint - Chief Complaint Chief Complaint: R arm and leg weakness History of Present Illness - Admitted From Admitted From:: ED - History Obtained From History obtained from: ED provider and the patient - History of Present Illness HPI Comment/Other: This is a 76-year-old white female with history of hypertension, heart murmur and essential tremor of her head. She lives with her and is active and independent. She has been to the ED multiple times in the last several days. Several days ago when the [place] was closed for 5 hours, she was driving and stuck in traffic for hours, which caused her increased anxiety. The following day, her daughter noticed that she was more confused and she came to the ED on 09/13/2021 because of confusion. They documented confusion but there was no focal neurologic deficit. She underwent a head CT and urine toxicology screen and labs which were unremarkable and she was discharged home. On 09/14/2021, she fell at home and hurt her right knee. On 09/15/2021, she came to the ED because of right knee pain. At that time the daughter reported that the patient was having right facial droop and the patient described it was progressing, having started over the previous 2 days. There was no head CT done then. The impression was that of new Calderon's palsy and her other ED work-up showed a UTI. She was discharged home on Decadron and Cephalexin. Today, the daughter noticed that the patient's right arm and right leg were weak and the patient complained of numbness of that right side, and she had the continued right facial droop. She presented to the ED now on the evening of 09/16/21, because of the right arm and leg symptoms. She was noted to be disoriented to time, but oriented to person and place. She underwent a CTA of head and neck which shows a subacute stroke in the left hemisphere. There was no bleeding seen. The ED provider reached out to the Neurologist on-call at [facility], Dr. Avalos, who advised the patient can be admitted here, should be started on daily aspirin, daily Lipitor, check fasting lipid panel and adjust the statin as needed, start PT and OT, monitor on telemetry. The Neurologist said no brain MRI was necessary because the head CT already showed evidence of a stroke. Since we have no Echo service available over the weekend (this is Sunday night), the Neurologist said it was okay to have the Echo done on Sunday when we again have Echo available. We discussed her wishes for CODE BLUE status and the patient would like to be a DNR. The daughter is at bedside and I confirmed with the daughter that the patient is expressing her true wishes and the daughter agrees that she is. History - Past Medical History Cardiovascular: reports: Hypertension, Murmur Neuro: reports: Tremors (Head tremor) HEENT: reports: Chronic hearing loss MRSA Hx?: No - Family & Social History Living arrangement: At home Living Situation: With spouse/s.o. Social History Notes: The patient does not smoke cigarettes. She drinks 1 glass of wine every night with dinner. There is no recreational drug use history. - Substance History Use: Uses substance without health or social issues: Alcohol Meds/Allgy - Home Medications Home Medications: Ambulatory Orders Medication Instructions Recorded Confirmed amLODIPine [Norvasc] 5 mg PO DAILY 06/05/16 09/17/21 cephALEXin [Keflex] 500 mg PO TID 5 Days #15 cap 09/15/21 09/17/21 dexAMETHasone [Decadron] 4 mg PO DAILY #5 tablet 09/15/21 09/17/21 - Allergies Allergies/Adverse Reactions: Allergies Allergy/AdvReac Type Severity Reaction Status Date / Time cyclobenzaprine HCl * Allergy Intermediate Unknown Verified 09/16/21 18:56 [From Flexeril] Review of Systems - Constitutional Constitutional: reports: Other (She is NOT Covid vaccinated) - Musculoskeletal Musculoskeletal: reports: Muscle weakness, Joint pain (R knee) - Neurological Neurological: reports: Focal weakness - All Other Systems All Other Systems: reports: Reviewed and negative (Confirmed from information from the daughter who is at bedside) Exam - Vital Signs Reviewed Vital Signs: Yes Vital Signs: Vital Signs x48h Temp Pulse Resp BP Pulse Ox 09/16/21 23:43 98 20 154/73 H 09/16/21 19:52 24 155/70 H 09/16/21 18:53 36.6 C 94 18 150/73 H 98 - Physical Exam General Appearance: positive: Alert Eyes Bilateral: positive: Normal inspection, EOMI, Other ([place]) ENT: positive: ENT inspection nml, No signs of dehydration Neck: positive: Nml inspection, No JVD Respiratory: positive: No respiratory distress, Breath sounds nml Cardiovascular: positive: Regular rate & rhythm, Systolic murmur (Harsh, 2-3/6 late peaking systolic murmur heard loudest at the base) Abdomen: positive: Non-tender, Nml bowel sounds, No distention Skin: positive: Warm, Dry Neurologic/Psychiatric: positive: Oriented x3, Weakness (R hand 2/5, L hand is 5/5. R foot 4/5, L foot 5/5), Facial droop (Right side), Slurred/abnml speech Conclusion/Plan - Problem List (1) Acute ischemic stroke Conclusion/Plan: The CT done in the ED shows evidence of a stroke. The patient is not a candidate for transfer for intervention or TPA because of it's subacute nature. The patient will be admitted, placed on telemetry to watch for A. fib, have an Echo done when the Echo service is available again, also have evaluation by PT, OT and Speech Therapy. She received aspirin 324 mg and Lipitor 40 mg in the ED and will be started on daily aspirin and Lipitor. Will order fasting lipid panel with morning labs and treat per guidelines (to a chieve an LDL under 70). DVT prophylaxis will not be with Lovenox, to decrease chance of hemorrhagic conversion Depending on her progression with rehab, she may need a SNF for more therapy. This was explained to the patient and daughter at her bedside. (2) Calderon palsy Conclusion/Plan: It is unclear if the Dx of [place] palsy was correct or wether that symptom was the start of stroke symptoms. There was no guidance from the Neurology phone call regarding that finding of the right facial droop. Neither was there a recommendation to stop or continue Decadron. (3) UTI (urinary tract infection) Conclusion/Plan: Will stop her oral antibx and use IV ceftriaxone for a day or so, to treat the UTI, until we know that she can swallow and then cephalexin oral can be resumed. Await cx results from the previous ED visit. Qualifiers: Urinary tract infection type: acute cystitis Hematuria presence: without hematuria Qualified Code(s): N30.00 - Acute cystitis without hematuria (4) Pain of right knee after injury Conclusion/Plan: This was a result of the fall in her home. The daughter says the patient fell because of being dizzy. There was no syncope. Will order pain meds prn (5) Heart murmur Conclusion/Plan: She has a heart murmur of aortic stenosis or IHSS. She had an Echo done here in 2016 that infact showed IHSS w/ a dynamic gradient in the LVOT. The Echo w/ full Doppler has been ordered. (6) HTN (hypertension) Conclusion/Plan: Will allow permissive HTN for 1-2 days, then resume her home BP meds. - Lab Results Fish Bones: 09/16/21 22:07 09/16/21 22:07 - Diagnostic Imaging Results Diagnostic Imaging Results: positive: Final report reviewed
[2021-09-17] MEDS ORDERED: KETOROLAC 30 MG/ML VIAL IVP PRN (02:48)
[2021-09-17] MEDS: SODIUM CHLORIDE FLUSH 0.9% 10 ML SYRINGE IVP SCH ×3 (03:51→17:07)
[2021-09-17 05:03] LABS: BASOPHILS % (AUTO) 0.1 %; EOSINOPHILS % (AUTO) 0.1 %; HCT - HEMATOCRIT 35.2 % (37.0-47.0); HGB - HEMOGLOBIN 11.9 g/dL (12.0-16.0); LYMPHOCYTES # (AUTO) 1.6 10^3/uL (1.5-3.5); MEAN CORPUSCULAR HEMOGLOBIN 31.1 pg (27.0-31.0); MEAN CORPUSCULAR HGB CONC 33.8 g/dL (32.0-36.0); MEAN CORPUSCULAR VOLUME 91.9 fL (81.0-99.0); MEAN PLATELET VOLUME 9.3 fL (7.9-10.8); MONOCYTES # (AUTO) 1.4 10^3/uL (0.0-1.0); MONOCYTES % (AUTO) 15.8 %; NEUTROPHILS # (AUTO) 5.6 10^3/uL (1.5-6.6); NEUTROPHILS % (AUTO) 64.8 %; PLT - PLATELET COUNT 218 10^3/uL (130-450); RED BLOOD COUNT 3.83 10^6/uL (4.20-5.40); RED CELL DISTRIBUTION WIDTH 12.3 % (12.0-15.0); WHITE BLOOD COUNT 8.6 x10^3/uL (4.8-10.8)
[2021-09-17 05:10] LABS: INR 1.3 (0.8-1.2); PT - PROTHROMBIN TIME 14.5 secs (9.9-12.6)
[2021-09-17 05:12] LABS: CALCIUM 8.5 mg/dL (8.5-10.3); CREATININE 0.6 mg/dL (0.4-1.0); POTASSIUM 3.4 mmol/L (3.5-5.0)
[2021-09-17 05:20] LABS: CHOL/HDL RATIO 3.1 (<4.4); CHOLESTEROL 175 mg/dL; HDL CHOLESTEROL 57 mg/dL; LDL CHOLESTEROL,CALCULATED 103 mg/dL; LDL/HDL RATIO 1.8 (<4.4); TRIGLYCERIDES 75 mg/dL; VLDL CHOLESTEROL 15 mg/dL
[2021-09-17] MEDS: SODIUM CHLORIDE 0.9% 1,000 ML IV SCH ×2 (07:02→20:36)
[2021-09-17] MEDS: ASPIRIN EC 81 MG TABLET PO SCH (08:29)
[2021-09-17] MEDS: cefTRIAXone 1 GM in SODIUM CHLORIDE 0.9% MINIBAG 100 ML IV SCH (08:29)
[2021-09-17 09:00] LABS: BILIRUBIN,URINE NEGATIVE (NEGATIVE); GLUCOSE, URINE (UA) NEGATIVE (NEGATIVE); KETONES,URINE (UA) NEGATIVE (NEGATIVE); LEUKOCYTE ESTERASE, URINE SMALL (NEGATIVE); NITRITE,URINE NEGATIVE (NEGATIVE); OCCULT BLOOD,URINE NEGATIVE (NEGATIVE); PH,URINE 5.5 PH (5.0-7.5); PROTEIN,URINE NEGATIVE (NEGATIVE); UROBILINOGEN,URINE 0.2 (NORMAL) E.U./dL (NORMAL)
[2021-09-17 09:10] LABS: BACTERIA,URINE Few /HPF (None Seen); CLARITY,URINE HAZY (CLEAR); RBC,URINE 0-5 /HPF (0-5); SQUAMOUS EPITHELIAL CELL,UR RARE Squamous (<= Few)
[2021-09-17] MEDS: ACETAMINOPHEN 325 MG TABLET PO PRN (09:48)
[2021-09-17] MEDS ORDERED: KETOROLAC 15 MG/ML VIAL IVP PRN (10:15)
--- NOTE | 2021-09-17 13:50 | PHARMACY PROGRESS NOTE ---
- Best Possible Medication History Admit Date and Time: 09/17/21 0037 Processed by: Pharmacy Medication History completed: Yes Secondary Source(s): Physician records, Pharmacy records, Insurance records As the person ultimately responsible for medication therapy, providers are able to order a medication from an existing home medication list in [facility] via the "Reconcile Routine" prior to Confirmation of that medication by wind farm support specialist. Such practice is discouraged except when the physician, in their clinical judgment, deems that a medical need exists for a medication without regard to previous use.
[2021-09-17] MEDS: ATORVASTATIN 40 MG TABLET PO SCH (20:36)
[2021-09-18] MEDS: SODIUM CHLORIDE FLUSH 0.9% 10 ML SYRINGE IVP SCH ×3 (01:05→16:19)
[2021-09-18] MEDS: SODIUM CHLORIDE 0.9% 1,000 ML IV SCH ×2 (07:55→11:11)
--- NOTE | 2021-09-18 08:10 | PROVIDER PROGRESS NOTE ---
Assessment/Plan - Problem List (1) Acute ischemic stroke Assessment/Plan: CT brain showed evidence of a subacute focal small infarct centered in the left deep white matter. Patient has right-sided residual weakness Patient is currently on atorvastatin 40 mg p.o. every afternoon, baby aspirin daily. 2D echocardiogram ordered for 09/19/2021. Patient working with PT/OT. Social work to facilitate discharge planning. (3) Heart murmur Assessment/Plan: Suspect aortic stenosis. 2D echocardiogram ordered for 09/19/2021. (4) Pain of right knee after injury Assessment/Plan: Toradol and/or Tylenol for pain (5) UTI (urinary tract infection) Qualifiers: Urinary tract infection type: acute cystitis Hematuria presence: without hematuria Qualified Code(s): N30.00 - Acute cystitis without hematuria Assessment/Plan: On Rocephin 1g IV daily. Urine culture pending - Current Meds Current Meds: Current Medications Generic Name Dose Route Start Last Admin Trade Name Freq PRN Reason Stop Dose Admin Acetaminophen 650 mg 09/17/21 00:37 09/17/21 09:48 Acetaminophen 325 Mg Tablet PO 650 mg Q4HR PRN Administration Pain or Fever > 38C (100.4F) Aspirin 81 mg 09/17/21 09:00 09/17/21 08:29 Aspirin Ec 81 Mg Tablet PO 81 mg DAILY ALTA Administration Atorvastatin Calcium 40 mg 09/17/21 21:00 09/17/21 20:36 Atorvastatin 40 Mg Tablet PO 40 mg QPM ALTA Administration Ceftriaxone Sodium 1 gm/ 100 mls @ 200 mls/hr 09/17/21 09:00 09/17/21 09:00 Sodium Chloride IV Infused DAILY ALTA Infusion Sodium Chloride 1,000 mls @ 100 mls/hr 09/17/21 04:00 09/17/21 20:36 Normal Saline 0.9% IV 100 mls/hr .Q10H ALTA Administration Sodium Chloride 10 ml 09/17/21 01:00 09/18/21 01:05 Sodium Chloride Flush 0.9% 10 Ml Syringe IVP Not Given 0100,0900,1700 ALTA - Lab Result Fish Bone Diagrams: 09/18/21 08:55 09/18/21 08:55 - Additional Planning My Orders: My Active Orders 09/18/21 08:08 BMP - BASIC METABOLIC PANEL [CHEM] Routine CBC - COMP BLD CT W/AUTO DIFF [HEME] Routine 09/19/21 05:00 BMP - BASIC METABOLIC PANEL [CHEM] DAILYLAB CBC - COMP BLD CT W/AUTO DIFF [HEME] DAILYLAB 09/20/21 05:00 BMP - BASIC METABOLIC PANEL [CHEM] DAILYLAB CBC - COMP BLD CT W/AUTO DIFF [HEME] DAILYLAB 09/21/21 05:00 BMP - BASIC METABOLIC PANEL [CHEM] DAILYLAB CBC - COMP BLD CT W/AUTO DIFF [HEME] DAILYLAB 09/22/21 05:00 BMP - BASIC METABOLIC PANEL [CHEM] DAILYLAB CBC - COMP BLD CT W/AUTO DIFF [HEME] DAILYLAB 09/23/21 05:00 BMP - BASIC METABOLIC PANEL [CHEM] DAILYLAB CBC - COMP BLD CT W/AUTO DIFF [HEME] DAILYLAB Subjective - Subjective Patient Reports: Other (Patient was seated in bedside chair at time of exam. was also at bedside. Slight right facial droop noticed which appears improved from previous day. Right upper extremity weakness noticeable at 3/5 s trength. She was able to work with physical therapy. She denied any other complaints.) Objective Vital Signs: Vital Signs - 24 hr 09/17/21 09/17/21 09/17/21 08:56 13:00 16:17 Temperature 36.7 C 36.7 C 36.5 C Heart Rate [ 85 80 79 Radial] Respiratory 20 16 18 Rate Blood Pressure 152/73 H 122/54 L 138/66 H [Right Brachial artery] O2 Saturation 95 97 98 09/17/21 09/17/21 09/18/21 20:00 23:43 03:10 Temperature 37 C 36.5 C 36.7 C Heart Rate [ 94 84 85 Radial] Respiratory 18 20 20 Rate Blood Pressure 144/60 H 150/69 H 128/69 [Right Brachial artery] O2 Saturation 96 97 99 Oxygen O2 Source Room air I&O (Last 24 Hrs): Intake and Output Totals x24h 09/16/21 09/17/21 09/18/21 23:59 23:59 23:59 Intake Total 2390 Output Total 600 Balance 1790 General: Alert, Oriented x3, Mild distress HEENT: PERRLA, EOMI Neck: Supple, No JVD Neuro: Alert, Focal Deficits (Left upper extremity 5/5 strength Right upper extremity 3/5 strength Left lower extremity 5/5 strength Right lower extremity 4/5 strength) Cardiovascular: Regular rate, Normal S1, Normal S2, Other (Loud blowing systolic murmur.) Respiratory: Chest non-tender, No respiratory distress, Breath sounds nml Abdomen: Normal bowel sounds, Soft, No tenderness, No masses Extremities: No clubbing, No cyanosis, No edema, No tenderness/swelling Skin: No rashes, No breakdown, No significant lesion - Results Results: Laboratory Results WBC 8.6 x10^3/uL (4.8-10.8) 09/17/21 04:51 RBC 3.83 10^6/uL (4.20-5.40) L 09/17/21 04:51 Hgb 11.9 g/dL (12.0-16.0) L 09/17/21 04:51 Hct 35.2 % (37.0-47.0) L 09/17/21 04:51 MCV 91.9 fL (81.0-99.0) 09/17/21 04:51 MCH 31.1 pg (27.0-31.0) H 09/17/21 04:51 MCHC 33.8 g/dL (32.0-36.0) 09/17/21 04:51 RDW 12.3 % (12.0-15.0) 09/17/21 04:51 Plt Count 218 10^3/uL (130-450) 09/17/21 04:51 MPV 9.3 fL (7.9-10.8) 09/17/21 04:51 Neut # (Auto) 5.6 10^3/uL (1.5-6.6) 09/17/21 04:51 Lymph # (Auto) 1.6 10^3/uL (1.5-3.5) 09/17/21 04:51 Ness # (Auto) 1.4 10^3/uL (0.0-1.0) H 09/17/21 04:51 Eos # (Auto) 0.0 10^3/uL (0.0-0.7) 09/17/21 04:51 Baso # (Auto) 0.0 10^3/uL (0.0-0.1) 09/17/21 04:51 Absolute Nucleated RBC 0.00 x10^3/uL 09/17/21 04:51 Nucleated RBC % 0.0 /100WBC 09/17/21 04:51 PT 14.5 secs (9.9-12.6) H 09/17/21 04:51 INR 1.3 (0.8-1.2) H 09/17/21 04:51 Sodium 139 mmol/L (135-145) 09/17/21 04:51 Potassium 3.4 mmol/L (3.5-5.0) L 09/17/21 04:51 Chloride 104 mmol/L (101-111) 09/17/21 04:51 Carbon Dioxide 22 mmol/L (21-32) 09/17/21 04:51 Anion Gap 13.0 (6-13) 09/17/21 04:51 BUN 17 mg/dL (6-20) 09/17/21 04:51 Creatinine 0.6 mg/dL (0.4-1.0) 09/17/21 04:51 Estimated GFR (MDRD) 97 (>89) 09/17/21 04:51 Glucose 116 mg/dL (70-100) H 09/17/21 04:51 Calcium 8.5 mg/dL (8.5-10.3) 09/17/21 04:51 Total Bilirubin 0.9 mg/dL (0.2-1.0) 09/16/21 22:07 AST 17 IU/L (10-42) 09/16/21 22:07 ALT 18 IU/L (10-60) 09/16/21 22:07 Alkaline Phosphatase 41 IU/L (42-121) L 09/16/21 22:07 Total Protein 7.5 g/dL (6.7-8.2) 09/16/21 22:07 Albumin 4.6 g/dL (3.2-5.5) 09/16/21 22:07 Globulin 2.9 g/dL (2.1-4.2) 09/16/21 22:07 Albumin/Globulin Ratio 1.6 (1.0-2.2) 09/16/21 22:07 Triglycerides 75 mg/dL (-149) 09/17/21 04:51 Cholesterol 175 mg/dL (-199) 09/17/21 04:51 LDL Cholesterol, Calc 103 mg/dL (-129) 09/17/21 04:51 VLDL Cholesterol 15 mg/dL 09/17/21 04:51 HDL Cholesterol 57 mg/dL (60-) L 09/17/21 04:51 LDL/HDL Ratio 1.8 (<4.4) 09/17/21 04:51 Cholesterol/HDL Ratio 3.1 (<4.4) 09/17/21 04:51 Lipase 22 U/L (22-51) 09/16/21 22:07 Urine Color YELLOW 09/17/21 08:25 Urine Clarity HAZY (CLEAR) 09/17/21 08:25 Urine pH 5.5 PH (5.0-7.5) 09/17/21 08:25 Ur Specific [place] 1.010 (1.002-1.030) 09/17/21 08:25 Urine Protein NEGATIVE mg/dL (NEGATIVE) 09/17/21 08:25 Urine Glucose (UA) NEGATIVE mg/dL (NEGATIVE) 09/17/21 08:25 Urine Ketones NEGATIVE mg/dL (NEGATIVE) 09/17/21 08:25 Urine Occult Blood NEGATIVE (NEGATIVE) 09/17/21 08:25 Urine Nitrite NEGATIVE (NEGATIVE) 09/17/21 08:25 Urine Bilirubin NEGATIVE (NEGATIVE) 09/17/21 08:25 Urine Urobilinogen 0.2 (NORMAL) E.U./dL (NORMAL) 09/17/21 08:25 Ur Leukocyte Esterase SMALL (NEGATIVE) H 09/17/21 08:25 Urine RBC 0-5 /HPF (0-5) 09/17/21 08:25 Urine WBC 11-25 /HPF (0-5) H 09/17/21 08:25 Ur Squamous Epith Cells RARE Squamous (<= Few) 09/17/21 08:25 Urine Bacteria Few /HPF (None Seen) 09/17/21 08:25 Urine Culture Comments INDICATED 09/17/21 08:25 Nasal Adenovirus (PCR) NOT DETECTED 09/16/21 23:49 Nasal B. parapertussis DNA (PCR) NOT DETECTED 09/16/21 23:49 Nasal Coronavir 229E PCR NOT DETECTED 09/16/21 23:49 Nasal Coronavir HKU1 PCR NOT DETECTED 09/16/21 23:49 Nasal Coronavir NL63 PCR NOT DETECTED 09/16/21 23:49 Nasal Coronavir OC43 PCR NOT DETECTED 09/16/21 23:49 Nasal Enterovir/Rhinovir PCR NOT DETECTED 09/16/21 23:49 Nasal Influenza B PCR NOT DETECTED 09/16/21 23:49 Nasal Influenza A PCR NOT DETECTED 09/16/21 23:49 Nasal Parainfluen 1 PCR NOT DETECTED 09/16/21 23:49 Nasal Parainfluen 2 PCR NOT DETECTED 09/16/21 23:49 Nasal Parainfluen 3 PCR NOT DETECTED 09/16/21 23:49 Nasal Parainfluen 4 PCR NOT DETECTED 09/16/21 23:49 Nasal RSV (PCR) NOT DETECTED 09/16/21 23:49 Nasal B.pertussis DNA PCR NOT DETECTED 09/16/21 23:49 Nasal C.pneumoniae (PCR) NOT DETECTED 09/16/21 23:49 Tj Human Metapneumo PCR NOT DETECTED 09/16/21 23:49 Nasal M.pneumoniae (PCR) NOT DETECTED 09/16/21 23:49 Nasal SARS-CoV-2 (PCR) NOT DETECTED 09/16/21 23:49
[2021-09-18] MEDS: ASPIRIN EC 81 MG TABLET PO SCH (08:48)
[2021-09-18] MEDS: cefTRIAXone 1 GM in SODIUM CHLORIDE 0.9% MINIBAG 100 ML IV SCH (08:49)
[2021-09-18 09:02] LABS: BASOPHILS % (AUTO) 0.3 %; EOSINOPHILS % (AUTO) 0.6 %; HCT - HEMATOCRIT 36.8 % (37.0-47.0); HGB - HEMOGLOBIN 12.2 g/dL (12.0-16.0); LYMPHOCYTES # (AUTO) 1.6 10^3/uL (1.5-3.5); LYMPHOCYTES % (AUTO) 25.1 %; MEAN CORPUSCULAR HEMOGLOBIN 30.7 pg (27.0-31.0); MEAN CORPUSCULAR HGB CONC 33.2 g/dL (32.0-36.0); MEAN CORPUSCULAR VOLUME 92.7 fL (81.0-99.0); MEAN PLATELET VOLUME 9.5 fL (7.9-10.8); MONOCYTES # (AUTO) 1.1 10^3/uL (0.0-1.0); NEUTROPHILS # (AUTO) 3.5 10^3/uL (1.5-6.6); NEUTROPHILS % (AUTO) 56.5 %; PLT - PLATELET COUNT 230 10^3/uL (130-450); RED BLOOD COUNT 3.97 10^6/uL (4.20-5.40); RED CELL DISTRIBUTION WIDTH 12.4 % (12.0-15.0); WHITE BLOOD COUNT 6.3 x10^3/uL (4.8-10.8)
[2021-09-18 09:11] LABS: CALCIUM 8.5 mg/dL (8.5-10.3); CREATININE 0.7 mg/dL (0.4-1.0)
[2021-09-18] MEDS: ACETAMINOPHEN 325 MG TABLET PO PRN ×2 (09:50→20:10)
[2021-09-18] MEDS: ATORVASTATIN 40 MG TABLET PO SCH (20:59)
[2021-09-19] MEDS: SODIUM CHLORIDE 0.9% 1,000 ML IV SCH ×2 (00:13→08:07)
[2021-09-19] MEDS: SODIUM CHLORIDE FLUSH 0.9% 10 ML SYRINGE IVP SCH ×2 (03:08→08:11)
[2021-09-19 06:16] LABS: BASOPHILS % (AUTO) 0.4 %; EOSINOPHILS # (AUTO) 0.1 10^3/uL (0.0-0.7); EOSINOPHILS % (AUTO) 1.6 %; HCT - HEMATOCRIT 36.4 % (37.0-47.0); HGB - HEMOGLOBIN 12.2 g/dL (12.0-16.0); LYMPHOCYTES % (AUTO) 36.2 %; MEAN CORPUSCULAR HEMOGLOBIN 30.9 pg (27.0-31.0); MEAN CORPUSCULAR HGB CONC 33.5 g/dL (32.0-36.0); MEAN CORPUSCULAR VOLUME 92.2 fL (81.0-99.0); MEAN PLATELET VOLUME 9.6 fL (7.9-10.8); MONOCYTES # (AUTO) 0.9 10^3/uL (0.0-1.0); MONOCYTES % (AUTO) 15.9 %; NEUTROPHILS # (AUTO) 2.5 10^3/uL (1.5-6.6); NEUTROPHILS % (AUTO) 45.5 %; PLT - PLATELET COUNT 227 10^3/uL (130-450); RED BLOOD COUNT 3.95 10^6/uL (4.20-5.40); RED CELL DISTRIBUTION WIDTH 12.1 % (12.0-15.0); WHITE BLOOD COUNT 5.6 x10^3/uL (4.8-10.8)
[2021-09-19 06:26] LABS: CALCIUM 8.5 mg/dL (8.5-10.3); CREATININE 0.5 mg/dL (0.4-1.0); POTASSIUM 3.6 mmol/L (3.5-5.0)
[2021-09-19] MEDS: ASPIRIN EC 81 MG TABLET PO SCH (08:08)
[2021-09-19] MEDS: cefTRIAXone 1 GM in SODIUM CHLORIDE 0.9% MINIBAG 100 ML IV SCH (08:11)
--- NOTE | 2021-09-19 08:29 | Discharge Plan ---
"Discharge Plan for SNF / [facility] - Discharge Plan And Transition Orders Problem Reviewed?: Yes Disposition: 03 [facility] DC/Xfer Condition: Stable Allergies and Adverse Reactions: Allergies Allergy/AdvReac Type Severity Reaction Status Date / Time cyclobenzaprine HCl * Allergy Intermediate Unknown Verified 09/16/21 18:56 [From Flexeril] Health Concerns: You were admitted on 09/17/2021 with right arm and leg weakness and slight right facial droop. Work-up included a CT of your brain which showed A stroke on the left side of the brain. Specifically it read as subacute focal small infarct centered in the left deep white matter. You were seen by physical therapy during your time here and it was determined that you would need therapy upon discharge. As a result 2 days after your hospital stay on 09/19/2021 you are being discharged to [facility] inpatient rehab where you would work on improving your strength. You were also treated for a UTI with Rocephin IV for 3 days. Prior to this you had a prescription of cephalexin 3 times daily for 5 days. All antibiotics discontinued by the time of discharge. Urine culture was no growth to date x3 days You had a 2D echocardiogram done which showed a hyperdynamic Ejection fraction at 70 to 75%. It also showed mild aortic stenosis. Of the basal septum without evidence of obstruction noted.Sigmoidal shaped septum We will continue your blood pressure medication amlodipine. Upon discharge you will be on atorvastatin and a baby aspirin daily. The above was explained to you with your daughter at bedside. He expressed understanding and agree with the plan - SNF / [facility] Transition Orders Admit to (Facility): [facility] Discharge Diagnosis: CVA: Subacute. Rehab at [facility] UTI: Completed 3 days of rocephin. Urine culture: NGTD X3 Pain of right knee after injury: Pain management with tylenol as needed Heart murmur: 2D echo done Hypertension: Chronic. Controlled. Continue amlodopine Medicare Certification Statement: I certify that [facility] care is medically necessary on a continuing basis for any of the conditions for which she/he is receiving care during hospitalization. Notify PCP of admission and forward orders to primary provider for signature. Weight on admission and: Weekly Other Notification Orders: Call PCP immediately if patient develops dyspnea, chest pain/tightness or edema. House Bowel Program: Yes Additional Bowel Program Orders: If no BM after 2 days, nurse may give M.O.M. 30ml PO PRN and/or ducolax Supp 1 NH and/or BRYCE 250mg P.O., and/or senna 1-2 tabs PO. On day 3 nurse may give repeat above order until residents constipation is resolved. Medication Orders: PLEASE REFER TO THE DISCHARGE MEDICATION LIST. - Medications New Prescriptions: Atorvastatin [Lipitor] 40 mg PO QPM 30 Days #30 tablet - Diet Type: [facility] - Therapies | Activity Therapy: Evaluation | Treat if indicated: Speech, PT, OT, Swallowing / ST Activity: Per Therapy Assistance Devices: Walker"
--- NOTE | 2021-09-19 08:29 | DISCHARGE SUMMARY ---
Discharge Summary Condition at Discharge: Stable Discharge Disposition: [facility] DC/Xfer - DIAGNOSES Admission Diagnoses: CVA: Subacute. UTI: Pain of right knee after injury: Heart murmur: Hypertension: Chronic. Controlled. Continue amlodopine Discharge Diagnoses with Status of Each Condition: CVA: Subacute. Rehab at [facility] UTI: Completed 3 days of rocephin. Urine culture: NGTD X3 Pain of right knee after injury: Pain management with tylenol as needed Heart murmur: 2D echo done. EF 70-75%. Mild Aortic Stenosis and IHSS noted Aortic Stenosis: Mild IHSS: Diagnosed on previous 2D echo in 2015. Again noted on 2D echo 09/19/21 Hypertension: Chronic. Controlled. Continue amlodopine - HPI History of Present Illness: Per HPI: This is a 76-year-old white female with history of hypertension, heart murmur and essential tremor of her head. She lives with her and is active and independent. She has been to the ED multiple times in the last several days. Several days ago when the [place] was closed for 5 hours, she was driving and stuck in traffic for hours, which caused her increased anxiety. The following day, her daughter noticed that she was more confused and she came to [facility] ED on 09/13/2021 because of confusion. They documented confusion but there was no focal neurologic deficit. She underwent a head CT and urine toxicology screen and labs which were unremarkable and she was discharged home. On 09/14/2021, she fell at home and hurt her right knee. On 09/15/2021, she came to the ED because of right knee pain. At that time the daughter reported that the patient was having right facial droop and the patient described it was progressing, having started over the previous 2 days. There was no head CT done then. The impression was that of new Calderon's palsy and her other ED work-up showed a UTI. She was discharged home on Decadron and Cephalexin. Today, the flaco haney noticed that the patient's right arm and right leg were weak and the patient complained of numbness of that right side, and she had the continued right facial droop. She presented to the ED now on the evening of 09/16/21, because of the right arm and leg symptoms. She was noted to be disoriented to time, but oriented to person and place. She underwent a CTA of head and neck which shows a subacute stroke in the left hemisphere. There was no bleeding seen. The ED provider reached out to the Neurologist on-call at [facility], Dr. Avalos, who advised the patient can be admitted here, should be started on daily aspirin, daily Lipitor, check fasting lipid panel and adjust the statin as needed, start PT and OT, monitor on telemetry. The Neurologist said no brain MRI was necessary because the head CT already showed evidence of a stroke. Since we have no Echo service available over the weekend (this is Sunday night), the Neurologist said it was okay to have the Echo done on Sunday when we again have Echo available. We discussed her wishes for CODE BLUE status and the patient would like to be a DNR. The daughter is at bedside and I confirmed with the daughter that the amna ent is expressing her true wishes and the daughter agrees that she is. - HOSPITAL COURSE Hospital Course: Hospital stay was largely unremarkable. She was seen by physical therapy and it was determined that she would need rehab at an inpatient rehab facility. She will be discharged to [facility]. 2D echocardiogram done on 09/19/2021 showed hyper dynamic left ventricular systolic ejection function of 70 to 75%. Mild aortic stenosis was noted as well. Is sigmoidal shaped septum with focal hypertrophy of the basal septum without evidence of obstruction was noted. This inferred a diagnosis of IHSS. These findings were also noted on the previous 2D echocardiogram done in 2016. Upon discharge the patient's antihypertensive amlodipine was resumed. She was prescribed atorvastatin 40 mg p.o. every afternoon and a baby aspirin daily. She may follow-up with her primary care physician as needed. - ALLERGIES Allergies/Adverse Reactions: Allergies Allergy/AdvReac Type Severity Reaction Status Date / Time cyclobenzaprine HCl * Allergy Intermediate Unknown Verified 09/16/21 18:56 [From Flexeril] - MEDICATIONS Home Medications: Ambulatory Orders Medication Instructions Recorded Confirmed amLODIPine [Norvasc] 5 mg PO DAILY 06/05/16 09/17/21 Loratadine [Claritin] 5 mg PO DAILY 09/17/21 09/17/21 Aspirin EC [Ecotrin] 81 mg PO DAILY tablet 09/19/21 Atorvastatin [Lipitor] 40 mg PO QPM 30 Days #30 tablet 09/19/21 - PHYSICAL EXAM AT DISCHARGE General Appearance: positive: No acute distress, Alert Eyes Bilateral: positive: PERRL, EOMI ENT: positive: No signs of dehydration Neck: positive: No JVD, Trachea midline Respiratory: positive: Chest non-tender, No respiratory distress, Breath sounds nml. negative: Wheezes, Rales, Rhonchi Cardiovascular: positive: Regular rate & rhythm, Systolic murmur Abdomen: positive: Non-tender, No organomegaly, Nml bowel sounds, No distention. negative: Guarding, Rebound Back: positive: Nml inspection Skin: positive: Color nml, No rash, Warm, Dry Extremities: positive: Non-tender, No pedal edema Neurologic/Psychiatric: positive: Oriented x3, Mood/affect nml, Facial droop (mild right sided), Other (LUE 5/5, LLE 5/5, RUE 3/5, RLE 4/5) - LABS Result Diagrams: 09/19/21 06:00 09/19/21 06:00 - TIME SPENT Time Spent in Discharge (Minutes): 25
[2021-09-19 09:40] LABS: B. PARAPERTUSSIS- RESP PCR PAN NOT DETECTED; B. PERTUSSIS- RESP PCR PANEL NOT DETECTED; C. PNEUMONIAE- RESP PCR PANEL NOT DETECTED; CORONAVIRUS 229E-RESP PCR NOT DETECTED; CORONAVIRUS HKU1-RESP PCR NOT DETECTED; CORONAVIRUS NL63-RESP PCR NOT DETECTED; CORONAVIRUS OC43-RESP PCR NOT DETECTED; HUMAN METAPNEUMOVIRUS NOT DETECTED; INFLUENZA A- RESP PCR PANEL NOT DETECTED; INFLUENZA B - RESP PCR PANEL NOT DETECTED; M. PNEUMONIAE- RESP PCR PANEL NOT DETECTED; PARAINFLUENZA VIRUS 1 NOT DETECTED; PARAINFLUENZA VIRUS 2 NOT DETECTED; PARAINFLUENZA VIRUS 3 NOT DETECTED; PARAINFLUENZA VIRUS 4 NOT DETECTED; RHINOVIRUS/ENTEROVIRUS NOT DETECTED; RSV- RESP PCR PANEL NOT DETECTED; SARS-CoV-2 -RESP PCR PANEL NOT DETECTED
[2021-09-19 12:58] VITALS: BP 139/57
== END 2021-09-19 13:50 | DRG 65 ==
LOC: ED 18:50 → MS3 09-17 00:37
PROVIDERS: ADMIT Internal Medicine; ATTEND Internal Medicine
DX: I63.9 Cerebral infarction, unspecified (principal); G81.91 Hemiplegia, unspecified affecting right dominant side; I42.1 Obstructive hypertrophic cardiomyopathy; R29.706 NIHSS score 6; N30.00 Acute cystitis without hematuria; I10 Essential (primary) hypertension; H91.90 Unspecified hearing loss, unspecified ear; R25.1 Tremor, unspecified; M25.561 Pain in right knee; Z91.81 History of falling; Z66 Do not resuscitate; Z20.822 Contact with and (suspected) exposure to COVID-19; Z79.899 Other long term (current) drug therapy
CPT/HCPCS: 36415; 70496; 70498; 71045; 80048; 80053; 80061; 81001; 83690; 85025; 85610; 87086; 87631; 93005; 93306; 97116; 97162; 97165; 97530; 99283; 99285; A9270; Q9967; 0202U; 83721; 84484

== ENCOUNTER 2021-12-20 12:59 | Outpatient (CLI) | payer MEDICARE, OTHER ==
[2021-12-20 18:41] LABS: BASOPHILS % (AUTO) 0.2 %; EOSINOPHILS % (AUTO) 0.6 %; HCT - HEMATOCRIT 38.6 % (37.0-47.0); HGB - HEMOGLOBIN 12.8 g/dL (12.0-16.0); LYMPHOCYTES # (AUTO) 1.8 10^3/uL (1.5-3.5); LYMPHOCYTES % (AUTO) 26.5 %; MEAN CORPUSCULAR HEMOGLOBIN 31.1 pg (27.0-31.0); MEAN CORPUSCULAR HGB CONC 33.2 g/dL (32.0-36.0); MEAN CORPUSCULAR VOLUME 93.7 fL (81.0-99.0); MEAN PLATELET VOLUME 10.4 fL (7.9-10.8); MONOCYTES # (AUTO) 0.8 10^3/uL (0.0-1.0); MONOCYTES % (AUTO) 11.5 %; NEUTROPHILS % (AUTO) 60.9 %; PLT - PLATELET COUNT 283 10^3/uL (130-450); RED BLOOD COUNT 4.12 10^6/uL (4.20-5.40); RED CELL DISTRIBUTION WIDTH 12.1 % (12.0-15.0); WHITE BLOOD COUNT 6.6 x10^3/uL (4.8-10.8)
[2021-12-20 18:57] LABS: ALBUMIN 4.4 g/dL (3.2-5.5); ALBUMIN/GLOBULIN RATIO 1.6 (1.0-2.2); BILIRUBIN,TOTAL 0.7 mg/dL (0.2-1.0); CALCIUM 9.1 mg/dL (8.5-10.3); CREATININE 0.6 mg/dL (0.4-1.0); TOTAL PROTEIN 7.1 g/dL (6.7-8.2)
[2021-12-20 19:50] LABS: INR 1.2 (0.8-1.2); PT - PROTHROMBIN TIME 13.8 secs (9.9-12.6)
[2021-12-20 21:09] LABS: PARTIAL THROMBOPLASTIN TIME 31.5 secs (24.9-33.3)
== END 2021-12-20 13:00 | disposition home or self-care (01) ==
LOC: LAB.N 12:59
PROVIDERS: ATTEND Physician Assistant
DX: Z01.812 Encounter for preprocedural laboratory examination (principal); I35.2 Nonrheumatic aortic (valve) stenosis with insufficiency
CPT/HCPCS: 36415; 80053; 85025; 85610; 85730

== ENCOUNTER 2022-07-13 10:11 | Outpatient (CLI) | payer MEDICARE, OTHER ==
--- NOTE | 2022-07-13 13:13 | Ultrasound Report ---
PROCEDURE: Abdomen Complete INDICATIONS: UPPER AND LOWER QUAD PAIN TECHNIQUE: Real-time scanning was performed of the abdominal and retroperitoneal organs, with image documentatio n. COMPARISON: None. FINDINGS: Liver: Liver is normal in size and homogeneous in echotexture. Mildly increased liver parenchymal e chotexture is seen. No discrete hepatic lesion. Gallbladder: Gallbladder is surgically absent. Biliary ducts: Intrahepatic bile ducts are non-dilated. Extrahepatic bile duct caliber measures 10. 8 mm. Normal is 6-7 mm or less in diameter, or 10 mm or less post-cholecystectomy. Pancreas: Pancreas is not visualized due to overlying bowel gas. Spleen: Spleen is normal in size an d homogeneous in echotexture. Kidneys: Kidneys are normal in size and echotexture. Right kidney measures 11.1 cm long; left kidne y measures 8.7 cm long. No hydronephrosis or nephrolithiasis. No solid masses. Aorta: Visualized aorta is normal in caliber at less than 3 cm. Iliacs: Proximal common iliac arteries are normal in caliber at less than 2.5 cm. IVC: Intrahepatic inferior vena cava is patent. Miscellaneous: No free abdominal fluid. IMPRESSION: 1. Mild hepatic steatosis. No discrete hepatic lesion. 2. Prior cholecystectomy. Common bile duct size is at the upper limits of normal. 3. Pancreas is not visualized due to overlying bowel gas. 4. Rest of the exam is unremarkable. Reviewed by: Steve Zaragoza MD on 07/13/2022 1:12 PM PDT Approved by: Steve Zaragoza MD on 07/13/2022 1:12 PM PDT Station ID: [id number]
== END 2022-07-13 10:12 | disposition home or self-care (01) ==
LOC: DI 10:11
PROVIDERS: ATTEND Physician Assistant
DX: R10.12 Left upper quadrant pain (principal); R10.32 Left lower quadrant pain; K76.0 Fatty (change of) liver, not elsewhere classified; Z90.49 Acquired absence of other specified parts of digestive tract

== ENCOUNTER 2024-01-14 11:56 | Outpatient (CLI) | payer MEDICARE, OTHER ==
[2024-01-14 17:50] LABS: BASOPHILS % (AUTO) 0.3 %; EOSINOPHILS # (AUTO) 0.1 10^3/uL (0.0-0.7); HCT - HEMATOCRIT 37.4 % (37.0-47.0); HGB - HEMOGLOBIN 11.5 g/dL (12.0-16.0); LYMPHOCYTES # (AUTO) 2.2 10^3/uL (1.5-3.5); LYMPHOCYTES % (AUTO) 36.3 %; MEAN CORPUSCULAR HEMOGLOBIN 30.1 pg (27.0-31.0); MEAN CORPUSCULAR HGB CONC 30.7 g/dL (32.0-36.0); MEAN CORPUSCULAR VOLUME 97.9 fL (81.0-99.0); MONOCYTES # (AUTO) 0.7 10^3/uL (0.0-1.0); MONOCYTES % (AUTO) 11.3 %; NEUTROPHILS # (AUTO) 3.1 10^3/uL (1.5-6.6); NEUTROPHILS % (AUTO) 50.9 %; PLT - PLATELET COUNT 211 10^3/uL (130-450); RED BLOOD COUNT 3.82 10^6/uL (4.20-5.40); RED CELL DISTRIBUTION WIDTH 12.8 % (12.0-15.0)
[2024-01-14 18:16] LABS: ALBUMIN 4.3 g/dL (3.2-5.5); ALBUMIN/GLOBULIN RATIO 1.6 (1.0-2.2); ALKALINE PHOSPHATASE 43 IU/L (42-121); ALT ALANINE AMINOTRANSFERASE 16 IU/L (10-60); AST ASPARTATE AMINOTRANSFERASE 18 IU/L (10-42); BILIRUBIN,TOTAL 0.4 mg/dL (0.2-1.0); BUN - BLOOD UREA NITROGEN 16 mg/dL (6-20); CALCIUM 9.7 mg/dL (8.5-10.3); CARBON DIOXIDE - CO2 33 mmol/L (21-32); CHLORIDE 103 mmol/L (101-111); CHOL/HDL RATIO 2.5 (<4.4); CHOLESTEROL 142 mg/dL; CREATININE 0.6 mg/dL (0.6-1.3); GFR - MDRD 96 (>89); GLUCOSE 134 mg/dL (74-104); HDL CHOLESTEROL 57 mg/dL; LDL CHOLESTEROL,CALCULATED 46 mg/dL; LDL/HDL RATIO 0.8 (<4.4); POTASSIUM 4.1 mmol/L (3.5-4.5); SODIUM 139 mmol/L (135-145); TRIGLYCERIDES 195 mg/dL (48-352); VLDL CHOLESTEROL 39 mg/dL
[2024-01-14 18:43] LABS: THYROID STIMULATING HORMONE 1.36 uIU/mL (0.34-5.60)
[2024-01-14 21:29] LABS: ESTIMATED AVERAGE GLUCOSE 128 mg/dL (70-100); HEMOGLOBIN A1c% 6.1 % (4.27-6.07)
== END 2024-01-14 11:57 | disposition home or self-care (01) ==
LOC: LAB.N 11:56
PROVIDERS: ATTEND Physician Assistant
DX: I10 Essential (primary) hypertension (principal); E78.5 Hyperlipidemia, unspecified; R73.9 Hyperglycemia, unspecified
CPT/HCPCS: 36415; 80053; 80061; 83036; 83721; 84443; 85025

== ENCOUNTER 2024-04-28 19:19 | Outpatient (CLI) | payer MEDICARE, OTHER | END 2024-04-28 23:59 | disposition EMS.NT | LOC: EMS 19:19 | DX: M54.2 Cervicalgia (principal); R50.9 Fever, unspecified; Z20.822 Contact with and (suspected) exposure to COVID-19 ==

== ENCOUNTER 2025-08-23 04:38 | Inpatient (IN) ==
--- NOTE | 2025-08-23 04:55 | ED Physician Documentation ---
History of Present Illness Stated complaint Stated Complaint: FELL,DEC LOC Chief complaint Chief Complaint: Neuro Additonal information Additional information: Patient is an 79-year-old female with past medical history of hypertension, previous stroke multiple years ago, which according to daughter she has not had persistent deficits from, though EMS share she has a history of right sided deficit since her initial stroke. Tonight around 3:30 in the morning she was found on the floor by her . Daughter present at bedside states that earlier tonight she spoke to her around 5 PM, and she was at her baseline. She thinks her parents likely went to bed around 8 PM. Last known normal is somewhere between 5 and 8 PM as best as daughter can estimate. According to daughter, states that he noticed that the patient was struggling to get up and go to the bathroom in the middle the night. He states that after period time she did not come back to the bathroom, and found her on the ground. Patient was incontinent of bowel and bladder. EMS states that she had a GCS of 12 on arrival, and had some garbled speech. She was saturating well on room air. On arrival to ER, she struggles to phonate normally, and has delays in answering my questions which limits exam. She generally seems to try to follow examination and prompting. Denies pain anywhere and habitus. Review of Systems Status of ROS: See HPI Meds/Allgy Home Medications Ambulatory Orders Medication Instructions Recorded Confirmed aspirin 81 mg tablet,delayed 81 mg PO QDAY 03/18/25 release loratadine 10 mg tablet 5 mg PO QDAY 03/18/25 multivitamin 1 tab PO QDAY 03/18/2505/14 vitamins A,C,A-uqxv-szfghc 4,296 1 cap PO BID 03/18/25 05/14/25 mcg-226 mg-90 mg capsule lidocaine 5 % topical patch 1 patch topical DAILY #15 ea 05/07/25 05/14/25 oxycodone 5 mg tablet 5 mg PO BID PRN pain #10 tab s 05/07/25 05/14/25 amlodipine 5 mg tablet 5 mg PO QDAY #90 tabs 05/14/25 atorvastatin 40 mg tablet 40 mg PO QPM CVA 90 days #90 tabs 05/14/25 05/14/25 losartan 25 mg tablet 25 mg PO QDAY #90 tabs 05/1405/14/25 Allergies Allergies Allergy/AdvReac Type Severity Reaction Status Date / Time cyclobenzaprine HCl * (From Allergy Intermediate Unknown Verified 08/23/25 04:55 Flexeril) latex Allergy Intermediate Rash Verified 08/23/25 04:55 PFSH Active Problems All Active Problems (Updated 08/23/25 @ 07:10 by Harlan Mccray MD) Altered mental status (Acute) Dementia (Acute) Cerebrovascular disease (Acute) Social History Social History (Updated 05/07/25 @ 10:34 by Daya Echols RN) Do you dip or chew tobacco?: No Living arrangement: At home Living Condition: With spouse/s.o. Level: Independent Do you feel safe in your home environment?: Yes History of physical, verbal, emotional, or financial abuse?: No POLST Patient has POLST: No Exam Exam Vital Signs: Vital Signs x48h Temp Pulse Resp BP Pulse Ox 08/23/25 06:00 36.9 C 89 18 109/65 95 08/23/25 05:34 100 16 129/61 96 08/23/25 04:38 38.6 C H 105 H 20 115/55 L 94 Constitutional no apparent distress and average body habitus Resting in examination bed, right-sided facial droop at rest, appears to be looking to the left persistently. HENMT normocephalic, head/scalp atraumatic and external ears normal Eyes Pupils 4 mm and reactive bilaterally. No conjunctival injection. Patient has difficulty following exam, though no nystagmus observed. Difficulty performing visual acuity check, patient having difficulty following command. Neck/C-Spine cervical spine nontender, cervical full ROM noted, supple and no meningeal signs Respiratory breath sounds equal bilaterally, normal respiratory effort and clear to auscultation bilaterally Cardiovascular normal heart rate noted, regular rhythm noted, no gallop, no murmur and peripheral pulses 2+ throughout Gastrointestinal abdomen soft to palpation and nontender to palpation Back/Pelvis spine normal to inspection and no thoracic spine tenderness Extremities normal to inspection Neurology Unable to accurately assess alertness and orientation secondary to speech difficulty. Appears to be favoring her left side/right sided hemineglect, with right-sided facial droop at rest. Facial droop is coachable to smile though prominent on right side. Cranial nerves otherwise grossly intact. Moving all extremities. Strength is globally diminished, 4 out of 5 in bilateral upper and lower extremities. Sensation intact throughout habitus. Skin skin color normal Results Vitals Vitals: Vital Signs - 24 hr 08/23/25 04:38 08/23/25 05:34 08/23/25 06:00 Temperature 38.6 C H 36.9 C Temperature Source Temporal Artery Scan Oral Pulse Rate 105 H 100 89 Respiratory Rate 20 16 18 Blood Pressure 115/55 L 129/61 109/65 O2 Saturation 94 96 95 O2 Source Room air Room air Room air Pain Intensity 0 4 Oxygen O2 Source Room air Labs Labs: Laboratory Tests 08/23/25 08/23/25 08/23/25 04:50 05:08 05:23 WBC 9.9 RBC 3.20 L Hgb 9.9 L Hct 30.7 L MCV 95.9 MCH 30.9 MCHC 32.2 RDW 13.6 Plt Count 163 MPV 10.1 Neut # (Auto) 8.2 H Lymph # (Auto) 0.3 L [place] # (Auto) 1.2 H Eos # (Auto) 0.0 Baso # (Auto) 0.0 Absolute Nucleated RBC 0.00 Nucleated RBC % 0.0 PT 14.0 H INR 1.3 H APTT 23.2 L Sodium 134 L Potassium 3.8 Chloride 100 L Carbon Dioxide 27 Anion Gap 7.0 BUN 18 Creatinine 0.6 Estimated GFR (MDRD) 96 Glucose 169 H Lactic Acid 1.3 Calcium 8.6 Total Bilirubin 0.7 AST 18 ALT 12 Alkaline Phosphatase 47 Troponin I High Sens 65.8 H* Total Protein 6.6 Albumin 3.9 Globulin 2.7 Albumin/Globulin Ratio 1.4 Procalcitonin Immunoas 0.54 H Urine Color YELLOW Urine Clarity CLEAR Urine pH 6.0 Ur Specific [place] 1.015 Urine Protein NEGATIVE Urine Glucose (UA) NEGATIVE Urine Ketones 40 H Urine Occult Blood NEGATIVE Urine Nitrite NEGATIVE Urine Bilirubin NEGATIVE Urine Urobilinogen 0.2 (NORMAL) Ur Leukocyte Esterase NEGATIVE Ur Microscopic Review NOT INDICATED Urine Culture Comments NOT INDICATED Nasal Adenovirus (PCR) NOT DETECTED Nasal B. parapertussis DNA (PCR) NOT DETECTED Nasal Coronavir 229E PCR NOT DETECTED Nasal Coronavir HKU1 PCR NOT DETECTED Nasal Coronavir NL63 PCR NOT DETECTED Nasal Coronavir OC43 PCR NOT DETECTED Nasal Enterovir/Rhinovir PCR NOT DETECTED Nasal Influenza B PCR NOT DETECTED Nasal Influenza A PCR NOT DETECTED Nasal Parainfluen 1 PCR NOT DETECTED Nasal Parainfluen 2 PCR NOT DETECTED Nasal Parainfluen 3 PCR NOT DETECTED Nasal Parainfluen 4 PCR NOT DETECTED Nasal RSV (PCR) NOT DETECTED Nasal B.pertussis DNA PCR NOT DETECTED Nasal C.pneumoniae (PCR) NOT DETECTED Tj Human Metapneumo PCR NOT DETECTED Nasal M.pneumoniae (PCR) NOT DETECTED Nasal SARS-CoV-2 (PCR) NOT DETECTED PD Medical Decision Making ED course ED course: Assessment: Patient is an 79-year-old female presents to the ER due to onset of altered mental status tonight, found down at home. According to daughter, she was last known normal definitively at 5 PM, though she thinks that she likely went to bed normal at 8 PM though this is not corroborated. At about 3:30 AM she was found on the ground, by at home, after patient attempted to go to the bathroom. Unclear if she fell, syncopized. She presents with right sided facial droop, appears to be favoring her left side. Importantly she does have a history of stroke, and daughter shares that patient does not have significant long-term deficits as a result of this. DDx: Includes but not limited to, embolic stroke, hemorrhagic stroke, TIA, concussion, skull fracture, traumatic subarachnoid hemorrhage, subdural hemorrhage, C-spine fracture, C-spine ligamentous injury, volume depletion, dehydration, syncope, cardiogenic syncope, bacteremia, sepsis, UTI, viral upper respiratory illness, encephalitis, meningitis, etc. Workup: CBC unremarkable with unremarkable white count, hemoglobin at 9.9 decreased from previous. PT, PTT, INR are all minimally abnormal. CMP with a sodium of 134, otherwise grossly unremarkable. Initial troponin 65.8. Procalcitonin mildly elevated 0.54. Urine studies without evidence of infection. Ketones are present in urine. Respiratory panel negative. Blood cultures pending. CT head, CTAs so far per radiologist interpretation are nonacute, with no evidence of significant occlusion, no mass effect. Still waiting on additional reads of bilateral knees, and right femur which show signs of trauma after fall today. Chest x-ray radiologic interpretation is pending, but no acute cardiopulmonary process per my read. EKG per my read: Sinus tachycardia, normal axis, regular intervals, T wave inversions in lead III, no malignant ST segment changes. Treatment: IV Tylenol 1000 mg, normal saline 2 L, aspirin 324 Discussion: At time of my signout this patient's workup is quite unremarkable apart from the elevated troponin 65.4. She has had improvement in her mental status, and appears to be returning to baseline according to daughter after she received 2 L of fluid. She had an initial temporal temperature shortly after arrival that was recorded at 101.48 F. On repeat exam oral temperature she is afebrile x2. I question the validity of the initial temperature. She does not have any meningeal signs on exam, if anything she appears to be clearing from a mental status perspective now. Infectious workup otherwise unremarkable so far. Considered lumbar puncture towards the end of my signout as her results compiled, though she has not had persistence of fever, she does not appear meningitic, no photophobia, no phonophobia. Negative Brudzinski's and Kernig sign and her mental status is improving. At time of my signout think that she will likely need MRI for potential TIA and further delineation of possible neurologic insult. This is not available on Sunday here at our ER. Handoff plan to Dr. Castillo is to likely admit her to our hospital if delta Trop is negative, for MRI tomorrow. Though could consider transferring elsewhere if available for MR if could be performed earlier. Disposition: ER, awaiting further workup, likely admit for MRI. Discharge Plan Discharge Condition: Stable Clinical Impression: Altered mental status Prescriptions: No Action loratadine 10 mg tablet 5 mg PO QDAY lidocaine 5 % adhesive patch,medicated 1 patch topical DAILY Qty: 15 0RF Rx Instructions: leave on most painful area for up to 12 hrs oxycodone 5 mg tablet 5 mg PO BID PRN (Reason: pain) Qty: 10 0RF aspirin 81 mg tablet,delayed release (DR/EC) 81 mg PO QDAY vitamins A,C,Y-obsw-qkyyjm 4,296 mcg-226 mg-90 mg capsule 1 cap PO BID multivitamin Tablet 1 tab PO QDAY amlodipine 5 mg tablet 5 mg PO QDAY Qty: 90 1RF atorvastatin 40 mg tablet 40 mg PO QPM 90 Days Qty: 90 1RF losartan 25 mg tablet 25 mg PO QDAY Qty: 90 1RF Print Language: Korean Stand Alone Forms: PCP List
[2025-08-23 05:16] LABS: HCT - HEMATOCRIT 30.7 % (37.0-47.0); HGB - HEMOGLOBIN 9.9 g/dL (12.0-16.0); MEAN PLATELET VOLUME 10.1 fL (7.9-10.8); NRBC ABSOLUTE COUNT (AUTO) 0.00 x10^3/uL; NUCLEATED RED BLOOD CELLS AUTO 0.0 /100WBC; PLT - PLATELET COUNT 163 10^3/uL (130-450); RED CELL DISTRIBUTION WIDTH 13.6 % (12.0-15.0)
[2025-08-23 05:20] LABS: INR 1.3 (0.8-1.2); PT - PROTHROMBIN TIME 14.0 secs (9.9-12.6)
[2025-08-23 05:31] LABS: ALT ALANINE AMINOTRANSFERASE 12.0 IU/L (10-60); AST ASPARTATE AMINOTRANSFERASE 18.0 IU/L (10-42); BUN - BLOOD UREA NITROGEN 18.0 mg/dL (6-20); CARBON DIOXIDE - CO2 27.0 mmol/L (21-32); CREATININE 0.6 mg/dL (0.6-1.3); GFR - MDRD 96.0 (>89)
[2025-08-23] MEDS: SODIUM CHLORIDE 0.9% 1,000 ML IV STA ×3 (05:31→11:50)
[2025-08-23 05:50] LABS: GLUCOSE, URINE (UA) NEGATIVE (NEGATIVE); KETONES,URINE (UA) 40 mg/dL (NEGATIVE); OCCULT BLOOD,URINE NEGATIVE (NEGATIVE)
[2025-08-23] MEDS: ACETAMINOPHEN 1,000 MG/100 ML 1,000 MG/100 ML BAG IV ONE (05:55)
[2025-08-23 06:11] LABS: B. PARAPERTUSSIS- RESP PCR PAN NOT DETECTED; B. PERTUSSIS- RESP PCR PANEL NOT DETECTED; C. PNEUMONIAE- RESP PCR PANEL NOT DETECTED; CORONAVIRUS 229E-RESP PCR NOT DETECTED; CORONAVIRUS HKU1-RESP PCR NOT DETECTED; CORONAVIRUS NL63-RESP PCR NOT DETECTED; CORONAVIRUS OC43-RESP PCR NOT DETECTED; HUMAN METAPNEUMOVIRUS NOT DETECTED; INFLUENZA A- RESP PCR PANEL NOT DETECTED; INFLUENZA B - RESP PCR PANEL NOT DETECTED; M. PNEUMONIAE- RESP PCR PANEL NOT DETECTED; PARAINFLUENZA VIRUS 1 NOT DETECTED; PARAINFLUENZA VIRUS 2 NOT DETECTED; PARAINFLUENZA VIRUS 4 NOT DETECTED; RHINOVIRUS/ENTEROVIRUS NOT DETECTED; RSV- RESP PCR PANEL NOT DETECTED; SARS-CoV-2 -RESP PCR PANEL NOT DETECTED
[2025-08-23] MEDS: ASPIRIN CHEW 81 MG TABLET PO STA (07:06)
--- NOTE | 2025-08-23 08:08 | XRAY Report ---
PROCEDURE: XR Chest 1V INDICATIONS: infectious workup TECHNIQUE: One view of the chest was acquired. COMPARISON: None. FINDINGS: Surgical changes and devices: None. Lungs and pleura: Moderate interstitial opacities with cephalization of pulmonary vasculature. No pleural effusion. No pneumothorax. Mediastinum: Mediastinal contours appear normal. Heart size is normal. Bones and chest wall: No suspicious bony lesions. Overlying soft tissues appear unremarkable. IMPRESSION: Moderate interstitial opacities with cephalization of pulmonary vasculature, concerning for pulmonary edema. No consolidative pneumonia. Reviewed by: Kai Lynn MD on 08/23/2025 8:05 AM PDT Approved by: Kai Lynn MD on 08/23/2025 8:05 AM PDT Station ID: [email or web address]
--- NOTE | 2025-08-23 08:11 | CT Report ---
PROCEDURE: CT Head W/O Stroke Protocol INDICATIONS: concern for stroke, new right sided deficits TECHNIQUE: Noncontrast angled axial sections acquired from the foramen magnum to the vertex, with coronal reformats. For radiation dose reduction, the following was used: automated exposure control, adjustment of mA and/or kV according to patient size. COMPARISON: None. FINDINGS: Image quality: Excellent. CSF spaces: Basal cisterns are patent. No extra-axial fluid collections. Ventricles are normal in size and shape. Brain: No midline shift. No intracranial mass effect or hemorrhage. Generalized volume loss with moderate microvascular ischemic changes. Bilateral chronic basal ganglia and internal capsule lacunar infarcts associated encephalomalacia. Glover-white matter interface is otherwise normal. Skull and face: Calvarium and visualized facial bones are intact, without suspicious lesions. Sinuses: Visualized sinuses and mastoids are clear. IMPRESSION: No acute intracranial pathology. Findings are concordant with preliminary interpretation provided by [facility]. This study fulfills neurological imaging criteria for inclusion or exclusion of acute stroke therapies based on available published neurological imaging guidelines. Reviewed by: Kai Lynn MD on 08/23/2025 8:08 AM PDT Approved by: Kai Lynn MD on 08/23/2025 8:08 AM PDT Station ID: [email or web address]
--- NOTE | 2025-08-23 08:17 | CT Report ---
PROCEDURE: CT Angio Head/Neck INDICATIONS: Concern for stroke, new right sided deficits CONTRAST: 100 ML OMNI 300 TECHNIQUE: After the administration of intravenous contrast, images were acquired from the aortic arch through the [place]. 3-dimensional lmdrifj-jtleoijys-gtzkzobwvp (MIP) and volume rendering reformats were acquired of the central intracranial vasculature and neck separately. COMPARISON: Same-day noncontrasted head CT. FINDINGS: Image quality: Diagnostic. Cerebral CT Angiogram: Internal carotid arteries: No acute findings. Bilateral calcifications of the carotid siphons which results in mild, less than 50% stenosis. No occlusion. No aneurysm. Anterior cerebral arteries: Unremarkable. No significant stenosis. No occlusion. No aneurysm. Middle cerebral arteries: Unremarkable. No significant stenosis. No occlusion. No aneurysm. Posterior cerebral arteries: Unremarkable. No significant stenosis. No occlusion. No aneurysm. Basilar artery: Unremarkable. No significant stenosis. No occlusion. No aneurysm. Vertebral arteries: Unremarkable as visualized. Dural venous sinuses: Unremarkable given phase of enhancement. Other: Moderate generalized volume loss and moderate microvascular ischemic changes in the supratentorial white matter. Chronic bilateral basal ganglia and internal capsule lacunar infarct Neck CT Angiogram: Internal carotid arteries: Calcifications of the bilateral carotid siphons result in less than 50% stenosis of the carotid bulb. No significant stenosis of the cervical internal carotid arteries. No significant stenosis. No dissection or occlusion. Common carotid arteries: Unremarkable. No significant stenosis. No dissection or occlusion. External carotid arteries: Unremarkable. No occlusion. Vertebral arteries: Unremarkable. No significant stenosis. No dissection or occlusion. Aortic Arch and Mediastinum: Partially visualized aortic arch unremarkable without evidence of aneurysm. Origins of the great vessels unremarkable. Other: Arterial phase soft tissues of the neck and chest are unremarkable. IMPRESSION: No acute intracranial or cervical arterial abnormality. Mild atherosclerotic disease in the bilateral carotid bulbs and siphons of the bilateral internal carotid arteries which results in less than 50% stenosis. Findings are concordant with preliminary interpretation provided by [facility]. The estimate of stenosis included in the report of the imaging study was calculated using the NASCET method Reviewed by: Kai Lynn MD on 08/23/2025 8:13 AM PDT Approved by: Kai Lynn MD on 08/23/2025 8:13 AM PDT Station ID: [email or web address]
--- NOTE | 2025-08-23 08:19 | CT Report ---
PROCEDURE: CT Cervical Spine WO INDICATIONS: gruond level fall TECHNIQUE: Noncontrast images acquired from the skull base to the T4 level. Sagittal and coronal reformats were then constructed. For radiation dose reduction, the following was used: automated exposure control, adjustment of mA and/or kV according to patient size. COMPARISON: None. FINDINGS: Image quality: Excellent. Bones: No fractures or dislocations. Visualized superior ribs are intact. Severe degenerative disc disease and severe degenerative disc osteophyte complex at C6-7 with subendplate sclerosis. Moderate left facet arthrosis at C2-3, and C3-4. Soft tissues: Prevertebral soft tissues are normal in thickness. No paravertebral hematomas. No apical pneumothoraces. IMPRESSION: No acute, displaced fracture or traumatic subluxation. Findings are concordant with preliminary interpretation provided by [facility]. Reviewed by: Kai Lynn MD on 08/23/2025 8:16 AM PDT Approved by: Kai Lynn MD on 08/23/2025 8:16 AM PDT Station ID: [email or web address]
[2025-08-23] MEDS: CLOPIDOGREL 75 MG TABLET PO STA (08:28)
--- NOTE | 2025-08-23 08:31 | XRAY Report ---
PROCEDURE: XR Knee 3V BL INDICATIONS: ground level fall to knee TECHNIQUE: 3 views of the bilateral knee(s) were acquired. COMPARISON: None. FINDINGS: Bones: No fractures or dislocations. No suspicious bony lesions. Bilateral tricompartmental degenerative arthrosis is greatest in the patellofemoral compartment Soft tissues: No knee joint effusion. No suspicious soft tissue calcifications or masses. Extensive vascular calcifications. IMPRESSION: No acute bony abnormality. Bilateral tricompartmental degenerative arthrosis. Reviewed by: Kai Lynn MD on 08/23/2025 8:28 AM PDT Approved by: Kai Lynn MD on 08/23/2025 8:28 AM PDT Station ID: [email or web address]
--- NOTE | 2025-08-23 08:32 | XRAY Report ---
PROCEDURE: XR Femur 2+V RT INDICATIONS: fall, trauma to leg TECHNIQUE: 2 views of the femur were acquired. COMPARISON: None. FINDINGS: Bones: No fractures or dislocations. No suspicious bony lesions. Mild degenerative arthrosis of the right hip. Soft tissues: No suspicious soft tissue calcifications or masses. Vascular calcifications. Excreted contrast in urinary bladder. Partially visualized lumbar inferior fusion hardware. IMPRESSION: No acute bony abnormality. Reviewed by: Kai Lynn MD on 08/23/2025 8:28 AM PDT Approved by: Kai Lynn MD on 08/23/2025 8:28 AM PDT Station ID: [email or web address]
[2025-08-23] MEDS: HYDROmorphone 0.5 MG/0.5 ML SYRINGE IVP STA (09:08)
[2025-08-23] MEDS: KETOROLAC 15 MG/ML VIAL IVP STA (09:08)
--- NOTE | 2025-08-23 12:01 | HISTORY & PHYSICAL EXAMINATION ---
Meds/Allgy Home Medications Ambulatory Orders Medication Instructions Recorded Confirmed aspirin 81 mg tablet,delayed 81 mg PO QDAY 03/18/25 release loratadine 10 mg tablet 5 mg PO QDAY 03/18/25 multivitamin 1 tab PO QDAY 03/18/2505/14 vitamins A,C,E-xwit-cnttmt 4,296 1 cap PO BID 03/18/25 05/14/25 mcg-226 mg-90 mg capsule lidocaine 5 % topical patch 1 patch topical DAILY #15 ea 05/07/25 05/14/25 oxycodone 5 mg tablet 5 mg PO BID PRN pain #10 tab s 05/07/25 05/14/25 amlodipine 5 mg tablet 5 mg PO QDAY #90 tabs 05/14/25 atorvastatin 40 mg tablet 40 mg PO QPM CVA 90 days #90 tabs 05/14/25 05/14/25 losartan 25 mg tablet 25 mg PO QDAY #90 tabs 05/1405/14/25 Allergies Allergies Allergy/AdvReac Type Severity Reaction Status Date / Time cyclobenzaprine HCl * (From Allergy Intermediate Unknown Verified 08/23/25 04:55 Flexeril) latex Allergy Intermediate Rash Verified 08/23/25 04:55 PFSH Active Problems All Active Problems (Updated 08/23/25 @ 12:00 by Jim Castillo MD) Demand ischemia of myocardium (Acute) History of cerebrovascular accident (CVA) due to ischemia (Acute) Acute hypotension (Acute) Facial droop (Acute) Altered mental status (Acute) Dementia (Acute) Cerebrovascular disease (Acute) Social History Social History (Updated 05/07/25 @ 10:34 by Daya Echols RN) Do you dip or chew tobacco?: No Living arrangement: At home Living Condition: With spouse/s.o. Level: Independent Do you feel safe in your home environment?: Yes History of physical, verbal, emotional, or financial abuse?: No POLST Patient has POLST: No Exam Exam Vital Signs: Vital Signs x48h Temp Pulse Resp BP Pulse Ox 08/23/25 11:42 77 103/46 L 99 08/23/25 11:28 75 14 95/48 L 99 08/23/25 09:54 68 18 107/48 L 98 08/23/25 06:00 98.4 F 89 18 109/65 95 08/23/25 05:34 100 16 129/61 96 08/23/25 04:38 101.5 F H 105 H 20 115/55 L 94 Conclusion/Plan Lab Results 08/23/25 05:08 08/23/25 05:08
[2025-08-23] MEDS ORDERED: ONDANSETRON ODT 4 MG TABLET TL PRN (12:34)
[2025-08-23] MEDS ORDERED: SODIUM CHLORIDE FLUSH 0.9% 10 ML SYRINGE IVP PRN (12:34)
--- OUTSIDE RECORDS SUMMARY | 2025-08-23 12:34 | EXTERNAL MEDICAL SUMMARY RPT | Continuity of Care Document ---
Author Organization [facility] Address [address] [address] Phone Results/Labs test date facility value unit notes Result panel 1 SARS-CoV-2 -RESP PCR PANEL 2025-08-23 04:50 [facility] NOT DETECTED (missing) A negative test result for this test indicates that SARS-CoV-2 RNA was not present in the specimen above the limit of detection. Testing performed on the BioFire RP2.1 Panel, a multiplexed nucleic acid repiratory panel. Negative results do not preclude infection with SARS-CoV-2 virus and should not be the sole basis of a patient management decision. In some patients repeat testing at various time points may be necessary for virus detection. False-negative results may arise from improper sample collection, degradation of viral RNA during shipping or storage, the presence of PCR inhibitors, and/or mutation in the SARS-CoV-2 virus. INFLUENZA A- RESP PCR PANEL 2025-08-23 04:50 [facility] NOT DETECTED (missing) Influenza A including subtypes H1, H3, and H1-2009 not detected by the BioFire RP2.1 Panel, a multiplexed nucleic acid test intended for the simultaneous qualitative detection and differentiation of nucleic acids from multiple viral and bacterial respiratory organisms. B. PARAPERTUSSIS- RESP PCR JOSEPH 2025-08-23 04:50 [facility] NOT DETECTED (missing) Negative results for this organism do not preclude infection with this organism and may require additional laboratory testing (e.g., bacterial and viral culture, immunofluorescence, and radiography) when evaluating a patient with possible respiratory tract infection. B. PERTUSSIS- RESP PCR PANEL 2025-08-23 04:50 [facility] NOT DETECTED (missing) Negative results for this organism do not preclude infection with this organism and may require additional laboratory testing (e.g., bacterial and viral culture, immunofluorescence, and radiography) when evaluating a patient with possible respiratory tract infection. C. PNEUMONIAE- RESP PCR PANEL 2025-08-23 04:50 [facility] NOT DETECTED (missing) Negative results for this organism do not preclude infection with this organism and may require additional laboratory testing (e.g., bacterial and viral culture, immunofluorescence, and radiography) when evaluating a patient with possible respiratory tract infection. M. PNEUMONIAE- RESP PCR PANEL 2025-08-23 04:50 [facility] NOT DETECTED (missing) Negative results for this organism do not preclude infection with this organism and may require additional laboratory testing (e.g., bacterial and viral culture, immunofluorescence, and radiography) when evaluating a patient with possible respiratory tract infection. CORONAVIRUS 229E-RESP PCR 2025-08-23 04:50 [facility] NOT DETECTED (missing) Negative results in the setting ofa respiratory illness may be due to infection with pathogens not detected by this test, or lower respiratory tract infection that may not be detected by nasopharyngeal specimen. CORONAVIRUS HKU1-RESP PCR 2025-08-23 04:50 [facility] NOT DETECTED (missing) Negative results in the setting ofa respiratory illness may be due to infection with pathogens not detected by this test, or lower respiratory tract infection that may not be detected by nasopharyngeal specimen. CORONAVIRUS CD53-VSGK PCR 2025-08-23 04:50 [facility] NOT DETECTED (missing) Negative results in the setting ofa respiratory illness may be due to infection with pathogens not detected by this test, or lower respiratory tract infection that may not be detected by nasopharyngeal specimen. CORONAVIRUS SJ85-XSSL PCR 2025-08-23 04:50 [facility] NOT DETECTED (missing) Negative results in the setting ofa respiratory illness may be due to infection with pathogens not detected by this test, or lower respiratory tract infection that may not be detected by nasopharyngeal specimen. HUMAN METAPNEUMOVIRUS 2025-08-23 04:50 [facility] NOT DETECTED (missing) Negative results in the setting ofa respiratory illness may be due to infection with pathogens not detected by this test, or lower respiratory tract infection that may not be detected by nasopharyngeal specimen. INFLUENZA B - RESP PCR PANEL 2025-08-23 04:50 [facility] NOT DETECTED (missing) Negative results in the setting ofa respiratory illness may be due to infection with pathogens not detected by this test, or lower respiratory tract infection that may not be detected by nasopharyngeal specimen. PARAINFLUENZA VIRUS 1 2025-08-23 04:50 [facility] NOT DETECTED (missing) Negative results in the setting ofa respiratory illness may be due to infection with pathogens not detected by this test, or lower respiratory tract infection that may not be detected by nasopharyngeal specimen. PARAINFLUENZA VIRUS 2 2025-08-23 04:50 [facility] NOT DETECTED (missing) Negative results in the setting ofa respiratory illness may be due to infection with pathogens not detected by this test, or lower respiratory tract infection that may not be detected by nasopharyngeal specimen. PARAINFLUENZA VIRUS 3 2025-08-23 04:50 [facility] NOT DETECTED (missing) Negative results in the setting ofa respiratory illness may be due to infection with pathogens not detected by this test, or lower respiratory tract infection that may not be detected by nasopharyngeal specimen. PARAINFLUENZA VIRUS 4 2025-08-23 04:50 [facility] NOT DETECTED (missing) Negative results in the setting ofa respiratory illness may be due to infection with pathogens not detected by this test, or lower respiratory tract infection that may not be detected by nasopharyngeal specimen. RHINOVIRUS/ENTEROVI ASAD 2025-08-23 04:50 [facility] NOT DETECTED (missing) Negative results in the setting ofa respiratory illness may be due to infection with pathogens not detected by this test, or lower respiratory tract infection that may not be detected by nasopharyngeal specimen. RSV- RESP PCR PANEL 2025-08-23 04:50 [facility] NOT DETECTED (missing) Negative results in the setting ofa respiratory illness may be due to infection with pathogens not detected by this test, or lower respiratory tract infection that may not be detected by nasopharyngeal specimen. ADENOVIRUS - RESP PCR PANEL 2025-08-23 04:50 [facility] NOT DETECTED (missing) Y Negative results in the setting ofa respiratory illness may be due to infection with pathogens not detected by this test, or lower respiratory tract infection that may not be detected by nasopharyngeal specimen. Result panel 2 NUCLEATED RED BLOOD CELLS AUTO 2025-08-23 05:08 [facility] 0.0 /100wbc (missing) BASOPHILS # (AUTO) 2025-08-23 05:08 [facility] 0.0 10 3/ul (missing) EOSINOPHILS # (AUTO) 2025-08-23 05:08 [facility] 0.0 10 3/ul (missing) NRBC ABSOLUTE COUNT (AUTO) 2025-08-23 05:08 [facility] 0.00 x10 3/ul (missing) LYMPHOCYTES # (AUTO) 2025-08-23 05:08 [facility] 0.3 10 3/ul (missing) PROCALCITONIN 2025-08-23 05:08 [facility] 0.54 ng/ml PCT Concentration (ng/mL) Children >72hrs old and Adults Interpretation ====== ======= <0.5 Low risk of severe sepsis and/or septic shock >2.0 High risk of severe sepsis and/or septic shock Concentrations under 0.5 ng/mL do not exclude local infections or systemic infections in their initial stages (e.g. under six hours from onset of illness). PCT concentrations between 0.5 and 2.0 ng/mL should be interpreted with consideration of the patient's history. In this range, it is recommended to retest PCT within 6 to 24hours. CREATININE 2025-08-23 05:08 [facility] 0.6 mg/dl As of April 2023 testing method has changed, this may include reference ranges. BILIRUBIN,TOTAL 2025-08-23 05:08 [facility] 0.7 mg/dl As of April 2023 testing method has changed, this may include reference ranges. MONOCYTES # (AUTO) 2025-08-23 05:08 [facility] 1.2 10 3/ul (missing) INR 2025-08-23 05:08 [facility] 1.3 (missing) Oral Anticoagulant Indication INR range Venous Thrombosis, P.E. 2.0 - 3.0 Mechanical Valve 2.5 - 3.5 LACTIC ACID, VENOUS 2025-08-23 05:08 [facility] 1.3 mmol/l N As of April 2023 testing method has changed, this may include reference ranges. ALBUMIN/GLOBULIN RATIO 2025-08-23 05:08 [facility] 1.4 (missing) (missing) MEAN PLATELET VOLUME 2025-08-23 05:08 [facility] 10.1 fl (missing) CHLORIDE 2025-08-23 05:08 [facility] 100 mmol/l As of April 2023 testing method has changed, this may include reference ranges. ALT ALANINE AMINOTRANSFERASE 2025-08-23 05:08 [facility] 12 iu/l As of April 2023 testing method has changed, this may include reference ranges. RED CELL DISTRIBUTION WIDTH 2025-08-23 05:08 [facility] 13.6 % (missing) SODIUM 2025-08-23 05:08 [facility] 134 mmol/l (missing) PT - PROTHROMBIN TIME 2025-08-23 05:08 [facility] 14.0 secs (missing) PLT - PLATELET COUNT 2025-08-23 05:08 [facility] 163 10 3/ul (missing) GLUCOSE 2025-08-23 05:08 [facility] 169 mg/dl As of April 2023 testing method has changed, this may include reference ranges. AST ASPARTATE AMINOTRANSFERASE 2025-08-23 05:08 [facility] 18 iu/l As of April 2023 testing method has changed, this may include reference ranges. BUN - BLOOD UREA NITROGEN 2025-08-23 05:08 [facility] 18 mg/dl As of April 2023 testing method has changed, this may include reference ranges. GLOBULIN 2025-08-23 05:08 [facility] 2.7 g/dl (missing) PARTIAL THROMBOPLASTIN TIME 2025-08-23 05:08 [facility] 23.2 secs (missing) CARBON DIOXIDE - CO2 2025-08-23 05:08 [facility] 27 mmol/l As of April 2023 testing method has changed, this may include reference ranges. RED BLOOD COUNT 2025-08-23 05:08 [facility] 3.20 10 6/ul (missing) POTASSIUM 2025-08-23 05:08 [facility] 3.8 mmol/l As of April 2023 testing method has changed, this may include reference ranges. ALBUMIN 2025-08-23 05:08 [facility] 3.9 g/dl As of April 2023 testing method has changed, this may include reference ranges. HCT - HEMATOCRIT 2025-08-23 05:08 [facility] 30.7 % (missing) MEAN CORPUSCULAR HEMOGLOBIN 2025-08-23 05:08 [facility] 30.9 pg (missing) MEAN CORPUSCULAR HGB CONC 2025-08-23 05:08 [facility] 32.2 g/dl (missing) ALKALINE PHOSPHATASE 2025-08-23 05:08 [facility] 47 iu/l As of April 2023 testing method has changed, this may include reference ranges. TOTAL PROTEIN 2025-08-23 05:08 [facility] 6.6 g/dl As of April 2023 testing method has changed, this may include reference ranges. TROPONIN I HIGH SENSITIVITY 2025-08-23 05:08 [facility] 65.8 ng/l Critical result [facility] 65.8 pg/mL called to and read back by Dr. Mahendra MCNULTY at 23-Aug-2025 05:41 by tulio. A HIGH SENSITIVITY TROPONIN result of >= 14.9 ng/L for females is considered POSITIVE. A HIGH SENSITIVITY TROPONIN result of >= 19.8 ng/L for males is considered POSITIVE. A HIGH SENSITIVITY TROPONIN result of >= 17.9 ng/L for unspecified is considered POSITIVE. ANION GAP 2025-08-23 05:08 [facility] 7.0 (missing) (missing) NEUTROPHILS # (AUTO) 2025-08-23 05:08 [facility] 8.2 10 3/ul (missing) CALCIUM 2025-08-23 05:08 [facility] 8.6 mg/dl As of April 2023 testing method has changed, this may include reference ranges. HGB - HEMOGLOBIN 2025-08-23 05:08 [facility] 9.9 g/dl (missing) WHITE BLOOD COUNT 2025-08-23 05:08 [facility] 9.9 x10 3/ul (missing) MEAN CORPUSCULAR VOLUME 2025-08-23 05:08 [facility] 95.9 fl (missing) GFR - MDRD 2025-08-23 05:08 [facility] 96 (missing) The IDMS-traceable MDRD Study Equation has been validated extensively in and populations between the ages of 18 and 70 with impaired kidney function (eGFR < 60 mL/min/1.73m2) and has shown good performance for patients with all common causes of kidney disease. Although this equation has not been validated for patients older than 70, an MDRD-derived eGFR may still be a useful tool for providers caring for patients older than 70. References: http://www.nkdep.ni h.gov/lab-evaluatio n/gfr/creatinine-st and ardization, last updated December 2011. Result panel 3 UROBILINOGEN,URINE 2025-08-23 05:23 [facility] 0.2 (NORMAL) e.u./dl (missing) SPECIFIC GRAVITY,URINE 2025-08-23 05:23 [facility] 1.015 (missing) (missing) KETONES,URINE (UA) 2025-08-23 05:23 [facility] 40 mg/dl (missing) PH,URINE 2025-08-23 05:23 [facility] 6.0 ph (missing) CLARITY,URINE 2025-08-23 05:23 [facility] CLEAR (missing) (missing) LEUKOCYTE ESTERASE, URINE 2025-08-23 05:23 [facility] NEGATIVE (missing) (missing) NITRITE,URINE 2025-08-23 05:23 [facility] NEGATIVE (missing) (missing) OCCULT BLOOD,URINE 2025-08-23 05:23 [facility] NEGATIVE (missing) (missing) BILIRUBIN,URINE 2025-08-23 05:23 [facility] NEGATIVE (missing) Bilirubin can be influenced by color interference. Please correlate positive results with clinical presentation GLUCOSE, URINE (UA) 2025-08-23 05:23 [facility] NEGATIVE mg/dl (missing) PROTEIN,URINE 2025-08-23 05:23 [facility] NEGATIVE mg/dl (missing) UR CULTURE IF IND 2025-08-23 05:23 [facility] NOT INDICATED (missing) (missing) URINE MICROSCOPIC INDICATED? 2025-08-23 05:23 [facility] NOT INDICATED (missing) (missing) COLOR,URINE 2025-08-23 05:23 [facility] YELLOW (missing) URINE CATHETERIZED Result panel 4 TROPONIN I HIGH SENSITIVITY 2025-08-23 07:43 [facility] 105.7 ng/l Critical result [facility] 105.7 pg/mL called to and read back by PEARL Gordon RN/ED at 23-Aug-2025 08:18 by _rodrigo. A HIGH SENSITIVITY TROPONIN result of >= 14.9 ng/L for females is considered POSITIVE. A HIGH SENSITIVITY TROPONIN result of >= 19.8 ng/L for males is considered POSITIVE. A HIGH SENSITIVITY TROPONIN result of >= 17.9 ng/L for unspecified is considered POSITIVE. Result panel 5 TROPONIN I HIGH SENSITIVITY 2025-08-23 09:37 [facility] 112.2 ng/l Critical result [facility] 112.2 pg/mL called to and read back by Pearl Gordon RN ED at 23-Aug-2025 10:17 by _osorio. A HIGH SENSITIVITY TROPONIN result of >= 14.9 ng/L for females is considered POSITIVE. A HIGH SENSITIVITY TROPONIN result of >= 19.8 ng/L for males is considered POSITIVE. A HIGH SENSITIVITY TROPONIN result of >= 17.9 ng/L for unspecified is considered POSITIVE. Social History date description facility
--- NOTE | 2025-08-23 14:27 | HISTORY & PHYSICAL EXAMINATION ---
<Statement entered by Lencho Joshi DNP - 08/23/25 17:34> Patient was seen and examined by me with a separate encounter after being seen by RAY student. I reviewed the student's documentation including patient history, physical examination, laboratory, imaging, clinical assessment and treatment plan. I have discussed the management of the patient with the student, and with the patient. There are no changes. Briefly, patient admitted for strokelike symptoms. Most of her lateralizing deficits appear to be chronic. She does have some confusion and dehydration. She had an elevated troponin that we trended to peak and back down. After time of the student's note, we were notified that patient has blood cultures positive for gram-negative bacilli. Her UA was clear. I have ordered CT abdomen/pelvis to further workup sources of infection. I have ordered a urine culture. Chief Complaint Chief Complaint Chief Complaint: Found down History of Present Illness History Obtained From History obtained from: Patient History of Present Illness HPI Comment/Other: Medina Molina is a 79 year old female with a history of previous stroke (2 years ago), hypertension, AMS, and dementia that presented to the ER after being found down by her at 03:30 this morning (08/23). Stroke-like Symptoms Medina states that she woke up early this morning and noticed that she had wet herself in the middle of the night. She got up to go to the bathroom but is not sure what happened after that. She says that she did not hit her head, but her legs hurt. She pointed at her RLE saying that it felt painful. She says that she has some amount of weakness at baseline, so it is unclear if her right-sided symptoms are new. From ED note: "According to daughter she has not had persistent deficits from [previous stroke], though EMS share she has a history of right sided deficit since her initial stroke. [...] Daughter present at bedside states that earlier tonight she spoke to her around 5 PM, and she was at her baseline. She thinks her parents likely went to bed around 8 PM. Last known normal is somewhere between 5 and 8 PM as best as daughter can estimate. According to daughter, states that he noticed that the patient was struggling to get up and go to the bathroom in the middle the night. He states that after period time she did not come back to the bathroom, and found her on the ground." No family present at bedside. Meds/Allgy Home Medications Ambulatory Orders Medication Instructions Recorded Confirmed aspirin 81 mg tablet,delayed 81 mg PO QDAY 03/18/25 release loratadine 10 mg tablet 5 mg PO QDAY 03/18/25 multivitamin 1 tab PO QDAY 03/18/2508/23 amlodipine 5 mg tablet 5 mg PO QDAY #90 tabs 08/23/25 atorvastatin 40 mg tablet 40 mg PO QPM CVA 90 days #90 tabs 05/14/25 08/23/25 losartan 25 mg tablet 25 mg PO QDAY #90 tabs 05/1408/23/25 acetaminophen 500 mg capsule 1,000 mg PO BID 08/23/25 08/23/25 ibuprofen 200 mg tablet (Advil) 400 mg PO BID 08/23/25 08/23/25 lidocaine 5 % topical patch 1 patch topical DAILY PRN pain 08/23/25 08/23/25 Allergies Allergies Allergy/AdvReac Type Severity Reaction Status Date / Time cyclobenzaprine HCl * (From Allergy Intermediate Unknown Verified 08/23/25 04:55 Flexeril) latex Allergy Intermediate Rash Verified 08/23/25 04:55 PFS Active Problems All Active Problems (Updated 08/23/25 @ 17:19 by Rafy Rocha) Elevated troponin I level (Acute) Stroke-like symptoms (Acute) Demand ischemia of myocardium (Acute) History of cerebrovascular accident (CVA) due to ischemia (Acute) Acute hypotension (Acute) Facial droop (Acute) Altered mental status (Acute) Dementia (Acute) Cerebrovascular disease (Acute) Social History Social History (Updated 08/23/25 @ 17:28 by Rafy Rocha) Smoking Status: Unknown if ever smoked Second hand tobacco smoke exposure: No Do you dip or chew tobacco?: No Living arrangement: At home Living Condition: With spouse/s.o. Level: Assisted Home Mobility Equipment: Walker Do you feel safe in your home environment?: Yes History of physical, verbal, emotional, or financial abuse?: No Substance Use: denies use POLST Patient has POLST: No Review of Systems Status of ROS: 10 or more systems reviewed and unremarkable except as noted in history and below Constitutional Reports: Weakness (States she has some rightsided weakness at baseline); Denies: Fever or Chills Eyes Denies: Vision loss or Change in vision Cardiovascular Denies: chest pain, palpitations or shortness of breath with exertion Respiratory Denies: Shortness of breath, Cough or Wheezing Gastrointestinal Denies: Abdominal pain Genitourinary Reports: Urinary incontinence (Early this morning) Musculoskeletal Reports: Extremity pain (Lower extremity pain, especially rightside) Neurological Reports: Weakness in extremities (She states she has some right-sided weakness since her stroke 2 years ago), Pre-existing deficit (Right-sided deficits since stroke two years ago) and Slurred speech (associated with right-sided facial droop) Allergic/Immunologic Denies: Wheezing Exam Exam Vital Signs: Vital Signs x48h Temp Pulse Pulse Resp BP BP Pulse Ox 08/23/25 16:57 36.8 C 86 18 120/64 96 08/23/25 13:09 82 19 110/68 98 08/23/25 12:12 61 15 111/50 L 94 08/23/25 11:42 77 103/46 L 99 08/23/25 11:28 75 14 95/48 L 99 08/23/25 09:54 68 18 107/48 L 98 Constitutional normal general appearance and alert HENMT head/scalp atraumatic Eyes PERRL, EOMs intact bilaterally, conjunctivae normal and no scleral icterus Respiratory breath sounds equal bilaterally, normal respiratory effort, clear to auscultation bilaterally, no wheezes, no rales and no use of accessory muscles Cardiovascular normal heart rate noted, regular rhythm noted, gallop noted, rub noted, murmur noted (systolic), peripheral pulses 2+ throughout and no edema Gastrointestinal abdomen normal to inspection, abdomen soft to palpation, nontender to palpation and nondistended Extremities no tenderness and no deformity Neurology no sensory deficits noted, speech abnormality noted (expressive aphasia), (slurred) and (garbled) and pronator drift noted (slight right-sided pronator drift) Psychiatry thought process abnormality noted (confused) and (tangential), cooperative and affect abnormality noted (anxious) (pt appeared anxious when she had trouble word finding) Skin skin color normal, ecchymosis noted (Ecchymosis on right anterior thigh), laceration(s) noted (bilateral lower extremities) (linear) and (irregular) and no jaundice Conclusion/Plan Problem List (1) Stroke-like symptoms: Plan: Medina presented to the ER today after being found down by her at 03:30. Her PMH includes stroke (2 years ago), hypertension, AMS, and dementia. She has some persistent right-sided weakness since her stroke 2 years ago. She currently presents with right-sided weakness and scattered lower extremity ecchymosis and lacerations, aphasia and slurred speech. Given the patient's history of dementia and no family present at bedside, it is difficult to ascertain if the stroke-like symptoms are the patient's baseline. Systolic murmur heard on auscultation. While able to respond to some questions, she did appear confused and would go on unrelated tangents. UA unremarkable. Other labs drawn in ER have slight variations, but are unremarkable except for the Troponin which is elevated by appears to be leveling off. For the time being, we have started cardiac, stroke, and AMS work ups to determine whether or not the symptoms are from a TIA, dehydration, cardiogenic syncope, UTI, or dementia. Blood cultures pending. - MRI of head ordered to investigate neuro cause - Echo e/ bubble study ordered to investigate cardiac cause - Blood cultures pending to check for infectious cause to confusion. - Allow permissive hypertension, hold home BP meds - Consult: PT, OT, and ST d/t right-sided weakness - Continue to telemonitor - Continue O2 nc PRN - Diet: Regular (2) Elevated troponin I level: Plan: Pt presents with elevated troponin I levels that appear to be leveling off. (65.8, 105.7, 112.2) No chest pain. This is likely a type 2 NSTEMI. - Aspirin EC 81 mg PO daily - Atorvastatin 40 mg PO qPM - Continue to telemonitor - EKG PRN (3) Dementia: Plan: Patient has history of dementia that is likely contributing to the problems listed above. Qualifiers: Dementia behavioral or psychological symptom: unspecified whether behavioral, psychotic, or mood disturbance or anxiety Dementia severity: m oderate Dementia type: unspecified type Qualified Code(s): F03.B0 - Unspecified dementia, moderate, without behavioral disturbance, psychotic disturbance, mood disturbance, and anxiety Lab Results Lab results reviewed: Yes 08/23/25 05:08 08/23/25 05:08 Diagnostic Imaging Results Diagnostic Imaging Results: positive Final report reviewed
--- NOTE | 2025-08-23 15:10 | PHARMACY PROGRESS NOTE ---
Best Possible Medication History Admit Date and Time: 08/23/25 [id number] Home Medications Medication Instructions Recorded Confirmed Type aspirin 81 mg tablet,delayed 81 mg PO QDAY 03/18/25 History release loratadine 10 mg tablet 5 mg PO QDAY 03/18/25 History multivitamin 1 tab PO QDAY 03/18/2508/23 History amlodipine 5 mg tablet 5 mg PO QDAY #90 tabs 08/23/25 Rx atorvastatin 40 mg tablet 40 mg PO QPM CVA 90 days #90 tabs 05/14/25 08/23/25 Rx losartan 25 mg tablet 25 mg PO QDAY #90 tabs 05/1408/23/25 Rx acetaminophen 500 mg capsule 1,000 mg PO BID 08/23/25 08/23/25 History ibuprofen 200 mg tablet (Advil) 400 mg PO BID 08/23/25 08/23/25 History lidocaine 5 % topical patch 1 patch topical DAILY PRN pain 08/23/25 08/23/25 History Processed by: Pharmacy Medications reviewed in ED?: No Medication History completed: Yes Patient Interview: Completed Secondary Source(s): Other family member, Pharmacy records and Insurance records [facility] Statement: As the person ultimately responsible for medication therapy, providers are able to order a medication from an existing home medication list in [facility] via the "Reconcile Routine" prior to Confirmation of that medication by field support specialist. Such practice is discouraged except when the physician, in their clinical judgment, deems that a medical need exists for a medication without regard to previous use.
--- NOTE | 2025-08-23 17:47 | CT Report ---
PROCEDURE: CT Abdomen/Pelvis WO INDICATIONS: workup infectious sources TECHNIQUE: A CT scan of the abdomen and pelvis was performed without the use of intravenous contrast. Images were recorded and evaluated at appropriate window settings. Reformats: coronal and sagittal. For radiation dose reduction, the following was used: automated exposure control, adjustment of mA and/or kV according to patient size. COMPARISON: None. FINDINGS: Image quality: Diagnostic. Lower chest: Bibasilar atelectasis. Three-vessel coronary artery calcifications. Liver: No contour-deforming mass. Gallbladder: Surgically absent. Biliary tree: No intrahepatic or extrahepatic dilation, accounting for age. Spleen: No splenomegaly. Pancreas: No pancreatic ductal dilation. Adrenals: No adrenal nodule. Kidneys and ureters: No hydronephrosis. No contour-deforming mass. Excreted contrast opacifies the renal collecting system. No hydronephrosis. Stomach, bowel and peritoneum: No gastric or small bowel dilation. No abnormal wall thickening. No pathologic free fluid. Normal appendix. Diverticulosis without diverticulitis. Lymph nodes: No central or retroperitoneal adenopathy. Vessels: No infrarenal aortic aneurysm. Reproductive organs: Unremarkable. Bladder: Excreted contrast opacifies the urinary bladder. No focal mural thickening. No filling defect. Pelvic lymph nodes: No adenopathy by size criteria. Bones: No aggressive osseous abnormality. Changes of L4-S1 interbody and posterior instrumented fusion. Other: No significant ventral or inguinal hernia. IMPRESSION: No source of infection identified in the abdomen or pelvis. Reviewed by: Kai Lynn MD on 08/23/2025 5:44 PM PDT Approved by: Kai Lynn MD on 08/23/2025 5:44 PM PDT Station ID: [id number]
[2025-08-23] MEDS: ACETAMINOPHEN 325 MG TABLET PO PRN (18:14)
[2025-08-23] MEDS ORDERED: LORazepam 2 MG/ML VIAL IVP PRN (18:19)
--- NOTE | 2025-08-23 19:39 | ED Physician Documentation ---
ED Addendum Addendum Addendum: Patient has still easily visible right facial droop and some slurring of speech. Daughter with her says the facial droop is typically not as prominent though can be seen at times if pt tired. The speech slurring/garbled is similar, but both are more notable now. Concern for TIA or new stroke, or if has symptoms resurging from prior stroke area due to drop in BP/illness. Similar with the elevation of troponin, which increased moderately and then leveled, without chest pain, etc. Presume demand ischemia of myocardium, so similar effect there (brain and heart). Interstingly though, the lactate is not elevated, which one might expect with this hypothesis. And creatinine good right now, but would want to recheck it periodically as renal tissue would have a bit more delay is showing injury effect. No obvious cause of infection, with sepsis being a concern for the hypotension, improved with IV fluids. Talked with Hospitalist about having pt hospitalized for further evaluation toward concern of infectious cause or other metabolic, with effect on heart/brain subsequently. Brain MRI would be more accurate for eval of CVA/new injury and is available tomorrow. dispositon: patient admitted to Hospitalist service in stable condition. Diagnoses: focal neurologic deficit TIA versus CVA hypotension demand ischemia of myocardium history of CVA Discharge Plan Discharge Patient Disposition: [facility] DC/Xfer Condition: Stable Clinical Impression: Altered mental status, Facial droop, Acute hypotension, History of cerebrovascular accident (CVA) due to ischemia, Demand ischemia of myocardium Interventions: ED Admission Assessment Last Done: 08/23/25 13:09
[2025-08-23] MEDS: ATORVASTATIN 40 MG TABLET PO SCH (21:19)
[2025-08-23] MEDS: SODIUM CHLORIDE FLUSH 0.9% 10 ML SYRINGE IVP SCH (21:19)
[2025-08-24 04:26] LABS: HCT - HEMATOCRIT 25.6 % (37.0-47.0); HGB - HEMOGLOBIN 8.1 g/dL (12.0-16.0); MEAN PLATELET VOLUME 10.0 fL (7.9-10.8); NRBC ABSOLUTE COUNT (AUTO) 0.00 x10^3/uL; NUCLEATED RED BLOOD CELLS AUTO 0.0 /100WBC; PLT - PLATELET COUNT 136 10^3/uL (130-450); RED CELL DISTRIBUTION WIDTH 14.0 % (12.0-15.0)
[2025-08-24 04:43] LABS: BUN - BLOOD UREA NITROGEN 13.0 mg/dL (6-20); CARBON DIOXIDE - CO2 25.0 mmol/L (21-32); CREATININE 0.5 mg/dL (0.6-1.3); GFR - MDRD 118.0 (>89)
[2025-08-24 04:52] LABS: PLATELET MORPHOLOGY NORMAL APPEARANCE (NORMAL); RBC MORPHOLOGY (MULTIPLE) NORMAL APPEARANCE (NORMAL)
[2025-08-24 04:53] LABS: PLATELET ESTIMATE, MANUAL NORMAL (130-450,000) (NORMAL); WBC MORPHOLOGY (MULTIPLE) NORMAL APPEARANCE (NORMAL)
[2025-08-24] MEDS: CLOPIDOGREL 75 MG TABLET PO SCH (09:30)
[2025-08-24] MEDS: ASPIRIN EC 81 MG TABLET PO SCH (09:30)
[2025-08-24] MEDS: MULTIVITAMIN TABLET PO SCH (09:30)
[2025-08-24] MEDS: CEFEPIME 2 GM VIAL IVP SCH (12:26)
--- NOTE | 2025-08-24 12:46 | Speech Therapy Plan of Care ---
DIAGNOSIS Date of Service Date of Service: 08/24/25 Diagnosis: NOLAN,DEC LOC SPEECH ASSESSMENT Assessment: Ms. Molina is an 79-year-old female who presented to the ED on 08/23 after being found down by her at approximately 03:30 AM. Past medical history includes CVA (2 years ago) with residual right-sided weakness, hypertension, dementia, and episodes of altered mental status. She is hard of hearing and reports visual deficits described as black spots in her visual field. On admission, she exhibited right-sided weakness, scattered lower extremity ecchymosis and lacerations, aphasia, and slurred speech. CT head showed no acute intracranial pathology. MRI completed this dateresults pending. Oral mech exam: Slight right labial weakness and mildly reduced soft palate strength/elevation. Speech is mildly slurred, consistent with baseline. Mentation appears at baseline; patient is alert and oriented to self, place, and situation. Swallow Evaluation: PO trials of thin liquids, puree, and solids were within functional limits. Patient demonstrates a functional swallow and prefers to continue her current diet. Plan: Continue regular diet with thin liquids, aspiration precautions. SOFTWARE SUPPORT ANALYST to follow up at lunch and continue monitoring swallowing and communication status. CAREGIVER/PATIENT GOALS Patient/Caregiver Goals: Pt would like to go home. SPEECH WINDOW INSTALLER GOALS Swallow: ST superintendent container terminal goal: Patient will safely consume the least restrictive diet and liquid level, as determined by ongoing swallow assessment, without overt s/s aspiration or pulmonary compromise, in order to maintain adequate nutrition and hydration Goal start date: 08/24/25 Goal achieve by date: 09/24/25 Goal status: New Speech/Cog: ST alf goal: SOFTWARE SUPPORT ANALYST will monitor speech, language, and cognitive- communication status to assess changes in function and determine ongoing therapy needs during acute recovery. Goal start date: 08/24/25 Goal achieve by date: 09/24/25 Goal status: New SPEECH PLAN OF CARE Treatment Frequency: 2-4x as needed Treatment Duration: Until goals met or DC Certification From Date:: 08/24/25 Thru Date:: 09/24/25
--- NOTE | 2025-08-24 13:00 | MRI Report ---
PROCEDURE: MRI Brain WO INDICATIONS: Please evaluate for CVA TECHNIQUE: Multisequence MRI of the brain was performed without intravenous contrast. COMPARISON: 05/05/2016. Correlation is also made with CT examinations dated 08/23/2025 FINDINGS: Image quality: Diagnostic, with note made of motion artifact. CSF Spaces: Basal cisterns are patent. No extra-axial fluid collections. Ventricles are normal in size and shape. Brain: No intracranial mass effect or hemorrhage. Glover/white matter interface is normal. Brainstem appears normal. Diffusion-weighted images demonstrate no acute ischemic insult. A remote lacunar infarct can be seen within the central/right zuleika, as on series 7 image 8. Normal intravascular flow voids are present. Age-appropriate brain parenchymal volume loss and chronic small vessel ischemic change can be seen. Skull and face: Calvarium has normal marrow signal. Orbits appear normal. Incidental note is made of bilateral lens replacements. Sinuses: Scattered mild paranasal sinus disease can be seen. Mild bilateral mastoid air cell fluid can be seen. IMPRESSION: No findings of acute or subacute infarction are seen. Remote lacunar infarction seen within the central/right zuleika, which is similar to 2016. Age-appropriate brain parenchymal volume loss and chronic small vessel ischemic change can be seen. Reviewed by: Gennaro Ralph MD on 08/24/2025 11:56 AM SHARON Approved by: Gennaro Ralph MD on 08/24/2025 11:56 AM SHARON Station ID: [id number]
--- NOTE | 2025-08-24 13:00 | PROVIDER PROGRESS NOTE ---
Subjective Prog Note Date Prog Note Date: 08/24/25 Subjective Pt reports feeling: No change Current Medications Current Medications Current Medications: Current Medications Generic Name Dose Route Start Last Admin Trade Name Claudia PRN Reason Stop Dose Admin Acetaminophen 650 mg 08/23/25 12:34 08/23/25 18:14 Acetaminophen 325 Mg Tablet PO 650 mg Q4HR PRN Administration Pain 1 to 4, or Fever Aspirin 81 mg 08/24/25 09:00 08/24/25 09:30 Aspirin Ec 81 Mg Tablet PO 81 mg DAILY ALTA Administration Atorvastatin Calcium 40 mg 08/23/25 21:00 08/23/25 21:19 Atorvastatin 40 Mg Tablet PO 40 mg QPM ALTA Administration Cefepime HCl 2 gm 08/24/25 11:00 08/24/25 12:26 Cefepime 2 Gm Vial IVP 2 gm BID ALTA Administration Clopidogrel Bisulfate 75 mg 08/24/25 09:00 08/24/25 09:30 Clopidogrel 75 Mg Tablet PO 75 mg DAILY ALTA Administration Multivitamins 1 tab 08/24/25 08:00 08/24/25 09:30 Multivitamin Tablet PO 1 tab DAILYWM ALTA Administration Ondansetron HCl 4 mg 08/23/25 12:34 Ondansetron Odt 4 Mg Tablet TL Q6HR PRN Nausea / Vomiting Sodium Chloride 10 ml 08/23/25 12:34 Sodium Chloride Flush 0.9% 10 Ml Syringe IVP PRN PRN NEEDED PER PROVIDER ORDERS Sodium Chloride 10 ml 08/23/25 17:00 08/24/25 09:39 Sodium Chloride Flush 0.9% 10 Ml Syringe IVP 10 ml 0100,0900,1700 ALTA Administration Sterile Water 30 ml 08/24/25 11:00 08/24/25 12:26 Water For Injection,Sterile 10 Ml Vial MC 30 ml BID ALTA Administration Objective Vital Signs/Intake & Output Reviewed Vital Signs: Yes Vital Signs: Vital Signs x48h Temp Pulse Resp BP Pulse Ox O2 Flow Rate 08/24/25 10:47 65 22 91 L 08/24/25 07:30 98.2 F 76 20 114/55 L 95 2 Intake & Output: Intake & Output 08/21/25 08/22/25 08/23/25 08/24/25 23:59 23:59 23:59 23:59 Intake Total 3270 / 3270 120 / 120 Output Total 350 / 350 400 / 400 Balance 2920 / 2920 -280 / -280 Weight (kg) 137 lb 12.623 oz Objective General Appearance: positive No acute distress and Alert Eyes Bilateral: positive Normal inspection ENT: positive ENT inspection nml Neck: positive Nml inspection Respiratory: positive Chest non-tender Cardiovascular: positive Regular rate & rhythm and Systolic murmur Abdomen: positive Non-tender Skin: positive Color nml Extremities: positive Non-tender Neurologic/Psychiatric: positive Oriented x3, Slurred/abnml speech and Other (Right-sided weakness, baseline) Lab Results 08/24/25 04:17 08/24/25 04:17 Other Labs: Lab Results x24hrs 08/24/25 08/24/25 08/23/25 Range/Units 07:32 04:17 20:46 WBC 6.6 (4.8-10.8) x10^3/uL RBC 2.66 L (4.20-5.40) 10^6/uL Hgb 8.1 L (12.0-16.0) g/dL Hct 25.6 L (37.0-47.0) % MCV 96.2 (81.0-99.0) fL MCH 30.5 (27.0-31.0) pg MCHC 31.6 L (32.0-36.0) g/dL RDW 14.0 (12.0-15.0) % Plt Count 136 (130-450) 10^3/uL MPV 10.0 (7.9-10.8) fL Neut # (Auto) 5.0 (1.5-6.6) 10^3/uL Lymph # (Auto) 0.8 L (1.5-3.5) 10^3/uL Falls # (Auto) 0.8 (0.0-1.0) 10^3/uL Eos # (Auto) 0.0 (0.0-0.7) 10^3/uL Baso # (Auto) 0.0 (0.0-0.1) 10^3/uL Absolute Nucleated RBC 0.00 x10^3/uL Band Neuts % (Manual) Not Reportable Abnorm Lymph % (Manual) Not Reportable Nucleated RBC % 0.0 /100WBC Neutrophils # (Manual) Not Reportable Lymphocytes # (Manual) Not Reportable Monocytes # (Manual) Not Reportable Eosinophils # (Manual) Not Reportable Basophils # (Manual) Not Reportable Differential Comment MANUAL=AUTO DIFF WBC Morphology NORMAL APPEARANCE (NORMAL) Platelet Estimate NORMAL (130-450,000) (NORMAL) Platelet Morphology NORMAL APPEARANCE (NORMAL) RBC Morph Micro Appear NORMAL APPEARANCE (NORMAL) Sodium 136 (135-145) mmol/L Potassium 3.4 L (3.5-4.5) mmol/L Chloride 106 (101-111) mmol/L Carbon Dioxide 25 (21-32) mmol/L Anion Gap 5.0 L (6-13) BUN 13 (6-20) mg/dL Creatinine 0.5 L (0.6-1.3) mg/dL Estimated GFR (MDRD) 118 (>89) Glucose 121 H (74-104) mg/dL POC Whole Bld Glucose 105 163 (70-100) mg/dL Calcium 7.8 L (8.5-10.3) mg/dL Total Creatine Kinase (30-223) IU/L Troponin I High Sens (2.3-14.8) ng/L 08/23/25 08/23/25 08/23/25 Range/Units 16:44 16:41 05:08 WBC (4.8-10.8) x10^3/uL RBC (4.20-5.40) 10^6/uL Hgb (12.0-16.0) g/dL Hct (37.0-47.0) % MCV (81.0-99.0) fL MCH (27.0-31.0) pg MCHC (32.0-36.0) g/dL RDW (12.0-15.0) % Plt Count (130-450) 10^3/uL MPV (7.9-10.8) fL Neut # (Auto) (1.5-6.6) 10^3/uL Lymph # (Auto) (1.5-3.5) 10^3/uL [place] # (Auto) (0.0-1.0) 10^3/uL Eos # (Auto) (0.0-0.7) 10^3/uL Baso # (Auto) (0.0-0.1) 10^3/uL Absolute Nucleated RBC x10^3/uL Band Neuts % (Manual) Abnorm Lymph % (Manual) Nucleated RBC % /100WBC Neutrophils # (Manual) Lymphocytes # (Manual) Monocytes # (Manual) Eosinophils # (Manual) Basophils # (Manual) Differential Comment WBC Morphology (NORMAL) Platelet Estimate (NORMAL) Platelet Morphology (NORMAL) RBC Morph Micro Appear (NORMAL) Sodium (135-145) mmol/L Potassium (3.5-4.5) mmol/L Chloride (101-111) mmol/L Carbon Dioxide (21-32) mmol/L Anion Gap (6-13) BUN (6-20) mg/dL Creatinine (0.6-1.3) mg/dL Estimated GFR (MDRD) (>89) Glucose (74-104) mg/dL POC Whole Bld Glucose 161 (70-100) mg/dL Calcium (8.5-10.3) mg/dL Total Creatine Kinase 49 (30-223) IU/L Troponin I High Sens 78.3 H* (2.3-14.8) ng/L Assessment/Plan Problem List (1) Stroke-like symptoms: Impression: Found down, presented with right-sided weakness. Intermittently confused History of dementia and stroke. Her neurodeficits are at baseline now This is likely dehydration exacerbating her dementia Note infectious workup as below MRI brain with no acute findings. Echo performed, awaiting read PT/ST (2) Gram-negative bacteremia: Impression: She has 2/2 blood cultures positive for gram-negative bacteremia. PCR identifies this as Enterobacter UA clear, but I did send off a urine culture CXR, CT abdomen/pelvis with no discernible source of infection She has no infected wounds Given PCR results, I have escalated her to cefepime 2 g twice daily. Since I cannot isolate a source of infection, she will likely need a full 7-day course of IV antibiotics. Consider de-escalation after culture and sensitivity results (3) Elevated troponin I level: Impression: Trended to peak and back down. No chest pain (4) Dementia: Impression: Likely greatly contributing to her presenting Symptoms Qualifiers: Dementia type: unspecified type Dementia severity: moderate Dementia behavioral or psychological symptom: unspecified whether behavioral, psychotic, or mood disturbance or anxiety Qualified Code(s): F03.B0 - Unspecified dementia, moderate, without behavioral disturbance, psychotic disturbance, mood disturbance, and anxiety
[2025-08-24] MEDS ORDERED: LORazepam 2 MG/ML VIAL IVP PRN (14:18)
--- NOTE | 2025-08-24 17:21 | ECHO Report ---
Version: 1 Study ID: [id number] [id number] Adult Echocardiogram Report Name: ANTONIO PERERA Study Date: 08/24/2025, 7: 09 AM BP: 106 / 54 mmHg Patient Location: ^[id number] HR: 74 bpm : 1945 (MM/DD/YYYY) Gender: Female Height: 62 in Age: 79 Years Weight: 137 lb BSA: 1.63 m² Reason For Study: AMS workup, patient has murmur History: Supine for test. Saline contrast study ordered. Previous study 09/19/2021-EF 70-75%, Moderate Aortic valve calc. with mild Aortic valve stenosis, Peak velocity 2.6 M/S, PGrad 27 mmHg, MnGrad 15 mmHg, JUAN JOSE 1.0 cm2, Mild/mod MAC, No MR, Trace TR. Interpretation Summary Global left ventricular systolic function is normal. The calculated ejection fraction, as determined by the biplane method of disks, is 64%. The overall diastolic pattern is one of restrictive filling with reduction of left ventricular compliance and marked elevation of left ventricular filling pressures. The right ventricle is normal in size and function. There is moderate mitral regurgitation. There is moderate valvular aortic stenosis. The aortic valve peak velocity is 370 cm/sec. The aortic valve mean pressure gradient is 30 mmHg. The calculated aortic valve area is 1.0 cm2. Negative Saline contrast study For Atrial Septal shunt Left Ventricle: The left ventricle is normal in size. There is mild asymmetric septal hypertrophy. No thrombus seen in the left ventricle. The calculated ejection fraction, as determined by the biplane method of disks, is 64%. Global left ventricular systolic function is normal. The overall diastolic pattern is one of restrictive filling with reduction of left ventricular compliance and marked elevation of left ventricular filling pressures. Right Ventricle: The right ventricle is normal in size and function. TAPSE is consistent with normal right ventricular function. The tricuspid annular plane systolic excursion (TAPSE) measurement is 1.8 cm. Aortic Valve: The aortic valve is moderately calcified. There is moderate valvular aortic stenosis. The aortic valve peak velocity is 370 cm/sec. The aortic valve maximum pressure gradient is 53 mmHg. The aortic valve mean pressure gradient is 30 mmHg. The calculated aortic valve area is 1.0 cm2. Trace aortic regurgitation is present. Mitral Valve: The mitral valve leaflets are structurally normal with normal motion. Moderate mitral annular calcification is present. No evidence of mitral stenosis is seen. There is moderate mitral regurgitation. Tricuspid Valve: The tricuspid valve is normal in structure and function. There is no tricuspid stenosis. Mild tricuspid regurgitation present. Pulmonic Valve: The pulmonic valve is normal in structure and function. There is no pulmonic valvular stenosis. Trace pulmonic valvular regurgitation is present. Left Atrium: The left atrium is mildly dilated. Negative Saline contrast study For Atrial Septal shunt. Patient unable to do a Valsalva. Abdominal hand push was negative for Atrial Septal shunt. Right Atrium: Right atrial size is normal. The inferior vena cava appears normal. Atrial Septum: The interatrial septum appears normal, without evidence of shunt by 2D imaging and color Doppler. Aorta: The ascending aorta is normal in size. The transverse arch is normal in size. The sinuses of Valsalva are normal in size. Pulmonary Artery: The pulmonary artery is not well visualized, but is probably normal size. The pulmonary artery systolic pressure is normal. Inferior vena cava dynamics indicate normal right atrial pressures. The right ventricular systolic pressure is 36mmHg. Pericardium/Pleural Space: There is no pericardial effusion. Left Ventricle IVSd: 1.25 cm LVIDd: 3.6 cm LVPWd: 0.94 cm LVIDs: 2.8 cm EDV(MOD-sp4): 61.6 ml LVLd ap4: 7.3 cm ESV(MOD-sp4): 30.8 ml ESV(sp4-el): 56.7 ml LVLs ap4: 6.0 cm EDV(MOD-sp2): 50.0 ml ESV(MOD-sp2): 23.2 ml Right Ventricle TAPSE: 1.82 cm RV S Alberto: 12.4 cm/sec [place]ria LA dimension: 5.1 cm LAV(MOD-sp4): 63.5 ml LAV(MOD-sp2): 62.1 ml Diastolic Function MV dec time: 0.17 sec MV E max alberto: 133.9 cm/sec MV A max alberto: 125.4 cm/sec Aortic Valve LVOT diam: 1.99 cm LV V1 mean P.8 mmHg LV V1 mean: 77.9 cm/sec LV V1 VTI: 24.6 cm Ao V2 VTI: 77.1 cm Ao mean P.9 mmHg Ao V2 mean: 255.0 cm/sec LV V1 max: 103.5 cm/sec LV V1 max P.3 mmHg Ao max P.3 mmHg Ao V2 max: 365.0 cm/sec Mitral Valve MV max P.1 mmHg MV V2 max: 142.7 cm/sec MV mean P.6 mmHg MV V2 mean: 88.6 cm/sec MV V2 VTI: 34.2 cm Tricuspid Valve TR max P.2 mmHg TR max alberto: 288.3 cm/sec TV max P.2 mmHg Aorta Ao root diam: 2.9 cm MMode/2D Measurements & Calculations Ao root diam: 2.9 cm BMI: 25.1 kilograms/m² BSA([facility]): 1.66 m² EDV(MOD-sp2): 50.0 ml EDV(MOD-sp4): 61.6 ml ESV(MOD-sp2): 23.2 ml ESV(MOD-sp4): 30.8 ml ESV(sp4-el): 56.7 ml IVSd: 1.25 cm LA A4C-A/L: 18.0 cm² LA dimension: 5.1 cm LA ESV-A/L: 51.8 ml LA Vol Index: 47.0 ml/m² LAV(MOD-sp2): 62.1 ml LAV(MOD-sp4): 63.5 ml LVIDd: 3.6 cm LVIDs: 2.8 cm LVLd ap4: 7.3 cm LVLs ap4: 6.0 cm LVOT diam: 1.99 cm LVPWd: 0.94 cm RA A4Cs: 9.7 cm² TAPSE: 1.82 cm Doppler Measurements & Calculations Ao max P.3 mmHg Ao mean P.9 mmHg Ao V2 max: 365.0 cm/sec Ao V2 mean: 255.0 cm/sec Ao V2 VTI: 77.1 cm Lat E/e': 14.7 LV V1 max: 103.5 cm/sec LV V1 max P.3 mmHg LV V1 mean: 77.9 cm/sec LV V1 mean P.8 mmHg LV V1 VTI: 24.6 cm Med E/e': 13.9 MV A max alberto: 125.4 cm/sec MV dec time: 0.17 sec MV DVI-pr: 1.07 MV E max alberto: 133.9 cm/sec MV max P.1 mmHg MV mean P.6 mmHg MV V2 max: 142.7 cm/sec MV V2 mean: 88.6 cm/sec MV V2 VTI: 34.2 cm PA max P.5 mmHg PA V2 max: 116.9 cm/sec RV S Alberto: 12.4 cm/sec TR max P.2 mmHg TR max alberto: 288.3 cm/sec TV max P.2 mmHg Other Measurements & Calculations Ao root area: 6.5 cm² JUAN JOSE(I,D): 0.99 cm² JUAN JOSE(V,D): 0.88 cm² EDV(Teich): 54.7 ml EF(MOD-sp2): 53.6 % EF(MOD-sp4): 50.0 % EF(sp-el): 54.9 % EF(Teich): 46.5 % ESV(Teich): 29.3 ml FS: 22.7 % LVOT area: 3.1 cm² MV E/A: 1.07 MVA(VTI): 2.24 cm² SV(LVOT): 76.6 ml SV(MOD-sp4): 30.8 ml MD Diana Escamilla 08/24/2025, 5: 21 PM Ordering Physician: Lencho Joshi Referring Physician: Harlan Mccray Performed By: DESIRAE
--- NOTE | 2025-08-24 17:59 | PT Plan of Care ---
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 PMH includes a CVA with R hemiparesis (2019 or 2020), please see chart for complete medical hx. The pt was received resting comfortably sitting up in a chair while visiting with her daughter. The pt presented today with decreased B UE and LE strength, decreased activity tolerance, and impaired standing balance all of which limited her tolerance during functional mobility. Her overall tolerance throughout this assessment was limited by weakness and fatigue which her daughter stated was near her baseline level. At this time recommend continued skilled PT intervention while in the acute setting and DC home with therapy for further rehab once pt medically stable. This plan was discussed with the pt and her daughter, they were both in agreement with this. At the end of the session the pt was sitting up in a chair with call light in reach, chair alarm in place and on, and all needs met while visiting with her daughter. updated on pt's status and DC rec. PATIENT/FAMILY GOALS Patient/Family Goals: To be stable enough to return home GOALS Improve supine to sit to:: Modified Independent Improve sit to stand to:: Modified Independent Improve pivot transfer ability to:: Modified Independent Improve sit to supine to:: Modified Independent Improve gait ability to:: Ind Advance Assistive Device to:: Front Wheeled Walker Improve Sitting Balance to:: Good PLAN Frequency: 1-2x/day Duration: Until goals are met DISCHARGE RECOMMENDATIONS Discharge Location: Previous Living Situation Support/Services Needed: Home Health P.T. Other Discharge Equipment: pt owns all recommended DME Transport Needs at Discharge: Personal vehicle
[2025-08-25 04:46] LABS: HCT - HEMATOCRIT 27.0 % (37.0-47.0); HGB - HEMOGLOBIN 8.7 g/dL (12.0-16.0); MEAN PLATELET VOLUME 11.2 fL (7.9-10.8); NRBC ABSOLUTE COUNT (AUTO) 0.00 x10^3/uL; NUCLEATED RED BLOOD CELLS AUTO 0.0 /100WBC; PLT - PLATELET COUNT 133 10^3/uL (130-450); RED CELL DISTRIBUTION WIDTH 13.6 % (12.0-15.0)
[2025-08-25 05:00] LABS: BUN - BLOOD UREA NITROGEN 10.0 mg/dL (6-20); CARBON DIOXIDE - CO2 28.0 mmol/L (21-32); CREATININE 0.4 mg/dL (0.6-1.3); GFR - MDRD 153.0 (>89)
--- NOTE | 2025-08-25 13:28 | PROVIDER PROGRESS NOTE ---
Subjective Prog Note Date Prog Note Date: 08/25/25 Subjective Pt reports feeling: No change Current Medications Current Medications Current Medications: Current Medications Generic Name Dose Route Start Last Admin Trade Name Claudia PRN Reason Stop Dose Admin Acetaminophen 650 mg 08/23/25 12:34 08/25/25 10:18 Acetaminophen 325 Mg Tablet PO 650 mg Q4HR PRN Administration Pain 1 to 4, or Fever Aspirin 81 mg 08/24/25 09:00 08/25/25 08:28 Aspirin Ec 81 Mg Tablet PO 81 mg DAILY ALTA Administration Atorvastatin Calcium 40 mg 08/23/25 21:00 08/24/25 20:21 Atorvastatin 40 Mg Tablet PO 40 mg QPM ALTA Administration Cefepime HCl 2 gm 08/24/25 11:00 08/25/25 08:28 Cefepime 2 Gm Vial IVP 2 gm BID ALTA Administration Clopidogrel Bisulfate 75 mg 08/24/25 09:00 08/25/25 08:28 Clopidogrel 75 Mg Tablet PO 75 mg DAILY ALTA Administration Lorazepam 0.5 mg 08/24/25 14:18 Lorazepam 2 Mg/Ml Vial IVP Q2H PRN Anxiety Multivitamins 1 tab 08/24/25 08:00 08/25/25 08:28 Multivitamin Tablet PO 1 tab DAILYWM ALTA Administration Ondansetron HCl 4 mg 08/23/25 12:34 Ondansetron Odt 4 Mg Tablet TL Q6HR PRN Nausea / Vomiting Sodium Chloride 10 ml 08/23/25 12:34 Sodium Chloride Flush 0.9% 10 Ml Syringe IVP PRN PRN NEEDED PER PROVIDER ORDERS Sodium Chloride 10 ml 08/23/25 17:00 08/25/25 08:28 Sodium Chloride Flush 0.9% 10 Ml Syringe IVP 10 ml 0100,0900,1700 ALTA Administration Sterile Water 30 ml 08/24/25 11:00 08/25/25 08:28 Water For Injection,Sterile 10 Ml Vial MC 30 ml BID ALTA Administration Objective Vital Signs/Intake & Output Reviewed Vital Signs: Yes Vital Signs: Vital Signs x48h Temp Pulse Resp BP Pulse Ox 08/25/25 13:17 98.1 F 79 20 107/55 L 97 08/25/25 08:20 98.1 F 78 24 115/59 L 92 Intake & Output: Intake & Output 08/22/25 08/23/25 08/24/2508/25/25 23:59 23:59 23:59 23:59 Intake Total 3270 / 3270 540 / 540 240 / 240 Output Total 350 / 350 2274 / 2274 1300 / 1300 Balance 2920 / 2920 -1734 / -1734 -1060 / -1060 Weight (kg) 137 lb 12.623 oz Objective General Appearance: positive No acute distress and Alert Eyes Bilateral: positive Normal inspection ENT: positive ENT inspection nml Neck: positive Nml inspection Respiratory: positive Chest non-tender Cardiovascular: positive Regular rate & rhythm and Systolic murmur Abdomen: positive Non-tender Skin: positive Color nml Extremities: positive Non-tender Neurologic/Psychiatric: positive Oriented x3, Slurred/abnml speech and Other (Right-sided weakness, baseline) Lab Results 08/25/25 04:02 08/25/25 04:02 Other Labs: Lab Results x24hrs 08/25/25 Range/Units 04:02 WBC 7.8 (4.8-10.8) x10^3/uL RBC 2.83 L (4.20-5.40) 10^6/uL Hgb 8.7 L (12.0-16.0) g/dL Hct 27.0 L (37.0-47.0) % MCV 95.4 (81.0-99.0) fL MCH 30.7 (27.0-31.0) pg MCHC 32.2 (32.0-36.0) g/dL RDW 13.6 (12.0-15.0) % Plt Count 133 (130-450) 10^3/uL MPV 11.2 H (7.9-10.8) fL Neut # (Auto) 5.4 (1.5-6.6) 10^3/uL Lymph # (Auto) 1.0 L (1.5-3.5) 10^3/uL [place] # (Auto) 1.3 H (0.0-1.0) 10^3/uL Eos # (Auto) 0.1 (0.0-0.7) 10^3/uL Baso # (Auto) 0.0 (0.0-0.1) 10^3/uL Absolute Nucleated RBC 0.00 x10^3/uL Nucleated RBC % 0.0 /100WBC Sodium 135 (135-145) mmol/L Potassium 3.6 (3.5-4.5) mmol/L Chloride 101 (101-111) mmol/L Carbon Dioxide 28 (21-32) mmol/L Anion Gap 6.0 (6-13) BUN 10 (6-20) mg/dL Creatinine 0.4 L (0.6-1.3) mg/dL Estimated GFR (MDRD) 153 (>89) Glucose 136 H (74-104) mg/dL Calcium 8.1 L (8.5-10.3) mg/dL Assessment/Plan Problem List (1) Stroke-like symptoms: Impression: Found down, presented with right-sided weakness. Intermittently confused History of dementia and stroke. Her neurodeficits are at baseline now This is likely dehydration exacerbating her dementia Note infectious workup as below MRI brain with no acute findings. Echo performed, awaiting read PT/ST 08/25: Back to baseline. Echo with moderate aortic stenosis and mitral regurgitation. PT recommends home (2) Gram-negative bacteremia: Impression: She has 2/2 blood cultures positive for gram-negative bacteremia. PCR identifies this as Enterobacter UA clear, but I did send off a urine culture CXR, CT abdomen/pelvis with no discernible source of infection She has no infected wounds Given PCR results, I have escalated her to cefepime 2 g twice daily. Since I cannot isolate a source of infection, she will likely need a full 7-day course of IV antibiotics. Consider de-escalation after culture and sensitivity results 08/25: Continue cefepime for now. She will need 7-day course of IV antibiotics. We are working with the [facility] to set this up. She will need ertapenem 1 g daily after discharge (3) Elevated troponin I level: Impression: Trended to peak and back down. No chest pain (4) Dementia: Impression: Likely greatly contributing to her presenting Symptoms Qualifiers: Dementia type: unspecified type Dementia severity: moderate Dementia behavioral or psychological symptom: unspecified whether behavioral, psychotic, or mood disturbance or anxiety Qualified Code(s): F03.B0 - Unspecified dementia, moderate, without behavioral disturbance, psychotic disturbance, mood disturbance, and anxiety
[2025-08-26 04:43] LABS: HCT - HEMATOCRIT 26.4 % (37.0-47.0); HGB - HEMOGLOBIN 8.7 g/dL (12.0-16.0); MEAN PLATELET VOLUME 10.7 fL (7.9-10.8); NRBC ABSOLUTE COUNT (AUTO) 0.00 x10^3/uL; NUCLEATED RED BLOOD CELLS AUTO 0.0 /100WBC; PLT - PLATELET COUNT 159 10^3/uL (130-450); RED CELL DISTRIBUTION WIDTH 13.8 % (12.0-15.0)
[2025-08-26 04:54] LABS: BUN - BLOOD UREA NITROGEN 9.0 mg/dL (6-20); CARBON DIOXIDE - CO2 29.0 mmol/L (21-32); CREATININE 0.4 mg/dL (0.6-1.3); GFR - MDRD 153.0 (>89)
[2025-08-26] MEDS ORDERED: SODIUM CHLORIDE 0.9% MINIBAG 0 ML IV ONE (08:26)
[2025-08-26] MEDS ORDERED: SODIUM CHLORIDE 0.9% MINIBAG 100 ML IV ONE (08:26)
[2025-08-26] MEDS: ERTAPENEM 1 GM in SODIUM CHLORIDE 0.9% MINIBAG 100 ML IV SCH (08:38)
--- NOTE | 2025-08-26 11:35 | Discharge Summary ---
Discharge Summary Admit Date: 08/23/25 Discharge Date: 08/26/25 Discharging Provider: Ny Campbell PA-C Primary Care Provider: LINA Hi Code Status: Attempt Resuscitation DIAGNOSES Discharge Diagnoses with Status of Each Condition: Gram-negative bacteremia, Enterobacter. Elevated troponin, resolved Strokelike symptoms, resolved she is at neurological baseline. Dementia, chronic. HPI History of Present Illness: Medina Molina is a 79 year old female with a history of previous stroke (2 years ago), hypertension, AMS, and dementia that presented to the ER after being found down by her at 03:30 this morning (08/23). Stroke-like Symptoms Medina states that she woke up early this morning and noticed that she had wet herself in the middle of the night. She got up to go to the bathroom but is not sure what happened after that. She says that she did not hit her head, but her legs hurt. She pointed at her RLE saying that it felt painful. She says that she has some amount of weakness at baseline, so it is unclear if her right-sided symptoms are new. From ED note: "According to daughter she has not had persistent deficits from [previous stroke], though EMS share she has a history of right sided deficit since her initial stroke. [...] Daughter present at bedside states that earlier tonight she spoke to her around 5 PM, and she was at her baseline. She thinks her parents likely went to bed around 8 PM. Last known normal is somewhere between 5 and 8 PM as best as daughter can estimate. According to daughter, states that he noticed that the patient was struggling to get up and go to the bathroom in the middle the night. He states that after period time she did not come back to the bathroom, and found her on the ground." No family present at bedside. HOSPITAL COURSE Hospital Course: (1) Stroke-like symptoms: Found down, presented with right-sided weakness. Intermittently confused History of dementia and stroke. Her neurodeficits are at baseline now MRI brain with no acute findings. Echo performed EF 64%, reduced ventricular compliance and elevated left ventricular filling pressures. no thrombus noted. moderate and mitral regurg. PT recommended home health. This is ordered, but will likely not begin until infusion treatment is completed. She will complete a 30d course of Plavix, then continue with aspirin. (2) Gram-negative bacteremia: She has 2/2 blood cultures positive for gram-negative bacteremia. PCR identifies this as Enterobacter UA clear, but I did send off a urine culture which shows no growth. CXR, CT abdomen/pelvis with no discernible source of infection She has no infected wounds She will need 7-day course of IV antibiotics. She will go to the [facility] clinic to finish a 7 d course of abx, Ertapenem, one gram daily. She will be receiving these through peripheral IV. (3) Elevated troponin I level: Trended to peak and back down. No chest pain (4) Dementia: Likely greatly contributing to her presenting Symptoms ALLERGIES Allergies Allergy/AdvReac Type Severity Reaction Status Date / Time cyclobenzaprine HCl * (From Allergy Intermediate Unknown Verified 08/23/25 04:55 Flexeril) latex Allergy Intermediate Rash Verified 08/23/25 04:55 MEDICATIONS Ambulatory Orders Medication Instructions Recorded Confirmed aspirin 81 mg tablet,delayed 81 mg PO QDAY 03/18/25 release loratadine 10 mg tablet 5 mg PO QDAY 03/18/25 multivitamin 1 tab PO QDAY 03/18/2508/23 amlodipine 5 mg tablet 5 mg PO QDAY #90 tabs 08/23/25 atorvastatin 40 mg tablet 40 mg PO QPM CVA 90 days #90 tabs 05/14/25 08/23/25 losartan 25 mg tablet 25 mg PO QDAY #90 tabs 05/1408/23/25 acetaminophen 500 mg capsule 1,000 mg PO BID 08/23/25 08/23/25 ibuprofen 200 mg tablet (Advil) 400 mg PO BID 08/23/25 08/23/25 lidocaine 5 % topical patch 1 patch topical DAILY PRN pain 08/23/25 08/23/25 clopidogrel 75 mg tablet 75 mg PO DAILY #19 tabs 07/30 07/23 ertapenem 1 gram solution for 1 g IV DAILY 08/26/25 injection PHYSICAL EXAM AT DISCHARGE Vital Signs: Vital Signs x48h Temp Pulse Resp BP Pulse Ox 08/26/25 14:00 36.6 C 82 20 109/60 97 Physical Exam Other/Comments: General Appearance: positive No acute distress and Alert Eyes Bilateral: positive Normal inspection ENT: positive ENT inspection nml Neck: positive Nml inspection Respiratory: lungs CTA Cardiovascular: positive Regular rate & rhythm and Systolic murmur Abdomen: positive Non-tender Skin: positive Color nml Extremities: positive Non-tender Neurologic/Psychiatric: positive Oriented x3, Slurred/abnml speech and Other (Right-sided weakness, baseline) LABS 08/26/25 04:03 08/26/25 04:03 DIAGNOSTIC IMAGING Diagnostic Imaging Results Comments: MRI brain: No findings of acute or subacute infarction. Remote lacunar infarction seen within the right zuleika, similar to previous studies CT abdomen pelvis: No source of infection identified in the abdomen or pelvis. FOLLOW UP Follow Up: [facility] daily to complete 4 d IV abx. PCP as scheduled 09/01. TIME SPENT Time Spent in Discharge (Minutes): 45 Discharge Plan Discharge Patient Disposition: Home, Self Care Condition: Stable Prescriptions: New ertapenem 1 gram recon soln 1 g IV DAILY clopidogrel 75 mg Tablet 75 mg PO DAILY Qty: 19 0RF Rx Instructions: finish all of this medication, then discontinue Continued loratadine 10 mg tablet 5 mg PO QDAY acetaminophen 500 mg capsule 1,000 mg PO BID ibuprofen [Advil] 200 mg tablet 400 mg PO BID lidocaine 5 % adhesive patch,medicated 1 patch topical DAILY PRN (Reason: pain) Rx Instructions: leave on most painful area for up to 12 hrs aspirin 81 mg tablet,delayed release (DR/EC) 81 mg PO QDAY multivitamin Tablet 1 tab PO QDAY amlodipine 5 mg tablet 5 mg PO QDAY Qty: 90 1RF atorvastatin 40 mg tablet 40 mg PO QPM 90 Days Qty: 90 1RF losartan 25 mg tablet 25 mg PO QDAY Qty: 90 1RF Activity Restrictions: Activity as Tolerated Diet: Regular Health Concerns: You came into the hospital because you were having some confusion and worsening right sided weakness. You were worked up for stroke, and your MRI was negative. You may have had what is called a transient ischemic attack, or a mini stroke. Your symptoms could also be explained with dehydration or infection. Your echocardiogram showed moderate aortic stenosis/mitral regurgitation. There is nothing emergent about these findings. You were found to have positive blood cultures. I cannot identify the source of the infection, as I have checked your lungs, your gut, your urine and all were negative. I am discharging you on a course of daily ertapenem IV, that he will be set up in the [facility] clinic for. I would like for you to finish out this course and then follow-up with your primary care provider You are being discharged after treatment for a transient ischemic attack (TIA) and gram-negative bacteremia. Please follow these instructions carefully to reduce your risk of complications and recurrence. Medications Antiplatelet therapy:Take aspirin (81mg daily) and clopidogrel (75 mg daily) together for 21 days, then continue aspirin alone. This combination lowers your risk of stroke after TIA. Antibiotics:Complete your prescribed antibiotic course for gram-negative bacteremia. Most patients need a total of 7 days of antibiotics. Other medications:Continue any blood pressure or cholesterol medications as prescribed. These help prevent future strokes. Lifestyle and Risk Factor Management Blood pressure:Take medications as directed and monitor your blood pressure at home. Cholesterol:Take statins or other cholesterol-lowering medicines as prescribed. Diet and exercise:Eat a Mediterranean or low-sodium diet. Exercise 34 times per week as tolerated. Follow-Up Appointments:Attend all follow-up visits with Primary care Lab tests:You may need repeat blood tests to confirm infection clearance and monitor medication effects. Warning Signs Call 911 or go to the emergency room if you experience: Sudden weakness, numbness, or trouble speaking New or worsening fever, chills, or confusion Chest pain, shortness of breath, or palpitations Additional Instructions Do not drive until cleared by your doctor. Bring all medications to each appointment. If you have questions or side effects, contact your healthcare team promptly. Summary Taking your medications, controlling risk factors, and attending follow-up appointments are critical to your recovery and prevention of future events.Your care team is available to support you. Print Language: Kittitian Patient Instructions: IV Care Using IV Abx Follow-up Care: Yenny Mejia, LINA, MSN, [employer] [Provider Admit Priv/Credential, Family Practice] Vitals documented within 30 minutes of discharge?: Yes (yES)
[2025-08-26 14:35] VITALS: BP 109/60; TEMP 97.9; O2SAT 97
== END 2025-08-26 14:30 | disposition home or self-care (01) | DRG 69 ==
LOC: ED 04:38 → MS3 12:30
PROVIDERS: ADMIT Internal Medicine; ATTEND Internal Medicine
DX: I08.0 Rheumatic disorders of both mitral and aortic valves; R53.1 Weakness; S81.812A Laceration without foreign body, left lower leg, initial encounter; Z86.73 Personal history of transient ischemic attack (TIA), and cerebral infarction without residual deficits; E86.0 Dehydration; I24.89 Other forms of acute ischemic heart disease; W18.30XA Fall on same level, unspecified, initial encounter; R29.818 Other symptoms and signs involving the nervous system; R47.81 Slurred speech; M17.0 Bilateral primary osteoarthritis of knee; R79.89 Other specified abnormal findings of blood chemistry; G45.9 Transient cerebral ischemic attack, unspecified; I95.9 Hypotension, unspecified; Z91.81 History of falling; I10 Essential (primary) hypertension; R78.81 Bacteremia; F03.B0 Unspecified dementia, moderate, without behavioral disturbance, psychotic disturbance, mood disturbance, and anxiety; R32 Unspecified urinary incontinence; B96.89 Other specified bacterial agents as the cause of diseases classified elsewhere; R41.82 Altered mental status, unspecified; Y92.002 Bathroom of unspecified non-institutional (private) residence as the place of occurrence of the external cause; I35.0 Nonrheumatic aortic (valve) stenosis; R00.0 Tachycardia, unspecified; R29.810 Facial weakness; Z79.82 Long term (current) use of aspirin; S81.811A Laceration without foreign body, right lower leg, initial encounter; Z79.899 Other long term (current) drug therapy